=== PATIENT | male | born 1935 | race Caucasian/White ===

== ENCOUNTER 2018-09-09 16:38 | Emergency (ER) | payer MEDICARE, BC ==
--- NOTE | 2018-09-09 17:59 | ED.PDOC ---
History of Present Illness - General Chief Complaint: Neuro Symptoms/Deficits Stated Complaint: AMS Time Seen by Provider: 09/09/18 17:57 Source: RN notes reviewed, EMS Exam Limitations: clinical condition - Parkinsons dementia - History of Present Illness Initial Comments: Cruzito Carranza 83 y/o male brought by OR with Hx of Parkisons Dementia after he was noted to be combative,forgetting he already ate and sometimes hitting staff at OR,.On his arrival he was noted to be calm,disoriented due to dementia ,no agitation. Timing/Duration: unknown Severity: moderate Episode Description: see hpi Improving Factors: nothing Worsening Factors: nothing Associated Symptoms: other - see hpi Allergies/Adverse Reactions: Allergies NO KNOWN ALLERGY Allergy (Verified 09/09/18 18:41) Review of Systems - Review of Systems Neurological: States: see HPI, other - Parkinsons dementia Unable to Obtain Due To: condition, dementia All other Systems: No Change from Baseline Family Medical History - Family History Father Family History: Unknown Living Status: Unknown Physical Exam - Physical Exam General Appearance: Alert, Comfortable Eye Exam: bilateral normal ENT Exam: normal ENT inspection, hearing grossly normal, pharynx normal Neck: supple, normal inspection, trachea midline Respiratory: chest non-tender, lungs clear, normal breath sounds, no respiratory distress Cardiovascular/Chest: normal peripheral pulses, regular rate, rhythm, no murmur Peripheral Pulses: radial,right: 2+, radial,left: 2+ Gastrointestinal/Abdominal: non tender, soft Back Exam: no CVA tenderness, no vertebral tenderness Extremities Exam: other - stiffness of both lower extremities Mental Status: alert, disoriented x 3, 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 Exam: normal hearing, normal speech, PERRL Motor/Sensory: no sensory deficit, other - muscle stiffness Skin Exam: normal color, warm/dry Progress - Progress Progress: 09/09/18 20:13 Vital Signs - 8 hr 09/09/18 09/09/18 09/09/18 17:00 17:39 18:45 Temperature 97.9 F Pulse Rate [ 49 L Left Radial] Pulse Rate [ 71 50 L Pulse OX] Respiratory 16 18 18 Rate Blood Pressure 163/71 201/92 [L Arm] Blood Pressure 167/76 [Left Arm] O2 Sat by Pulse 97 96 94 L Oximetry 09/09/18 19:00 Temperature Pulse Rate [ 48 L Left Radial] Pulse Rate [ Pulse OX] Respiratory Rate Blood Pressure 165/75 [L Arm] Blood Pressure [Left Arm] O2 Sat by Pulse 97 Oximetry - Results/Orders Results/Orders: Laboratory Results - last 24 hr 09/09/18 09/09/18 09/09/18 18:16 18:16 19:20 WBC 11.1 H RBC 4.05 L Hgb 12.7 L Hct 37.5 L MCV 92.7 MCH 31.5 H MCHC 34.0 RDW 15.4 H Plt Count 543 H MPV 9.0 Absolute Neuts (auto) 9.00 H Absolute Lymphs (auto) 1.30 Absolute Monos (auto) 0.60 Absolute Eos (auto) 0.10 Absolute Basos (auto) 0.10 Neutrophils % 81.5 H Lymphocytes % 11.5 L Monocytes % 5.1 Eosinophils % 1.2 Basophils % 0.7 PT 11.0 H INR 1.10 PTT (SP) 31.1 Sodium 139 Potassium 4.1 Chloride 102 Carbon Dioxide 27 Anion Gap 14.1 BUN 22 H Creatinine 1.19 BUN/Creatinine Ratio 18.5 Random Glucose 110 H Serum Osmolality 281.5 Lactic Acid 0.7 Calcium 8.9 Magnesium 2.2 Total Bilirubin 0.6 Direct Bilirubin < 0.1 Indirect Bilirubin 0.5 AST 17 ALT 14 Alkaline Phosphatase 73 Creatine Kinase 66 CK-MB (CK-2) 3.5 CK-MB (CK-2) % Not Reportable Troponin I < 0.02 B-Natriuretic Peptide 249.0 H* Serum Total Protein 7.0 Albumin 4.4 TSH 1.57 Urine Color Yellow Urine Appearance Clear Urine pH 7.0 Ur Specific Kiana 1.020 Urine Protein Negative Urine Glucose (UA) Negative Urine Ketones Negative Urine Blood Negative Urine Nitrite Negative Urine Bilirubin Negative Urine Urobilinogen 0.2 Ur Leukocyte Esterase Negative Urine RBC 0 Urine WBC 0 Ur Epithelial Cells 0 Urine Bacteria 0 - EKG/XRAY/CT XRAY: chest - no acute abnormalities CT Ordered: Yes - no acute findings Departure - Departure Clinical Impression: Dementia due to Parkinson's disease with behavioral disturbance Time of Disposition: 20:14 Disposition: Discharge to [facility] Living Condition: Fair Departure Forms: ED Discharge - Pt. Copy, Patient Portal Self Enrollment Referrals: KARISSA SALAMANCA MD [Primary Care Provider] - 1-2 Weeks Additional Instructions: Continue with all current medications;Call office in AM for medication of his agitation
[2018-09-09 18:49] VITALS: TEMP 97.9
--- NOTE | 2018-09-09 18:54 | RAD ---
EXAM: XR Chest, 1 View CLINICAL HISTORY: 83 years old and is Male; history of pleural effusion TECHNIQUE: Frontal view of the chest. COMPARISON: No relevant prior studies available. FINDINGS: Limitations: None. Lungs: Unremarkable. No consolidation. Pleural space: No pleural effusion noted. No pneumothorax. Heart: Prominent cardiac shadow. Mediastinum: Unremarkable. Bones/joints: Unremarkable. IMPRESSION: No acute findings. Electronically signed by: Elizabeth Johnston MD 09/09/2018 6:53 PM CDT
--- NOTE | 2018-09-09 18:55 | CT ---
EXAM: CT Head Without Intravenous Contrast CLINICAL HISTORY: 83 years old and is Male; AMS TECHNIQUE: Axial computed tomography images of the head/brain without intravenous contrast. Sagittal and coronal reformatted images were created and reviewed. This CT exam was performed using one or more of the following dose reduction techniques: automated exposure control, adjustment of the mA and/or kV according to patient size, and/or use of iterative reconstruction technique. COMPARISON: No relevant prior studies available. FINDINGS: Limitations: None. Brain: There is age related cortical atrophy and periventricular white matter hypodensity most consistent with chronic small ischemic change. No acute infarct, hemorrhage or mass. Ventricles: Unremarkable. No ventriculomegaly. Bones/joints: Unremarkable. No acute fracture. Soft tissues: Unremarkable. Sinuses: Unremarkable as visualized. No acute sinusitis. Mastoid air cells: Unremarkable as visualized. No mastoid effusion. IMPRESSION: No acute findings. Electronically signed by: Elizabeth Johnston MD 09/09/2018 6:54 PM CDT
[2018-09-09 20:48] VITALS: BP 164/78; O2SAT 98
== END 2018-09-09 20:50 ==
LOC: ER 16:38
DX: G20 Parkinson's disease (principal); F02.81 Dementia in other diseases classified elsewhere, unspecified severity, with behavioral disturbance

== ENCOUNTER 2018-10-02 04:44 | Emergency (ER) | payer MEDICARE, BC ==
--- NOTE | 2018-10-02 05:14 | ED.PDOC ---
History of Present Illness - General Chief Complaint: Trauma Stated Complaint: unwitnessed fall out of bed Time Seen by Provider: 10/02/18 04:59 Source: patient Exam Limitations: physical impairment Additional Information: PT HAS NO C/O'S - History of Present Illness Initial Comments: PT FOUND IN FLOOR. LIVES A NH, IS SEVERELY DEMENTED. HAD SWELLING TO HEAD, WAS TRANSPORTED TO ED FOR EVAL. Allergies/Adverse Reactions: Allergies NO KNOWN ALLERGY Allergy (Verified 09/09/18 18:41) Home Medications: Ambulatory Orders ALPRAZolam [Xanax] 0.25 mg PO BEDTIME 10/02/18 Escitalopram [Lexapro] 10 mg PO DAILY 10/02/18 Levetiracetam [Keppra] 500 mg PO BID 10/02/18 Memantine HCl [Namenda Xr] 28 mg PO DAILY 10/02/18 Quetiapine Fumarate [Seroquel] 25 mg PO BEDTIME 10/02/18 Rivastigmine Tartrate [Exelon] 6 mg PO BID 10/02/18 rOPINIRole HCL [Requip] 1 mg PO TID 10/02/18 Review of Systems - Review of Systems Constitutional: States: see HPI EENTM: States: see HPI Respiratory: States: see HPI Cardiology: States: see HPI Gastrointestinal/Abdominal: States: see HPI Genitourinary: States: see HPI Musculoskeletal: States: see HPI Skin: States: see HPI Neurological: States: see HPI Endocrine: States: see HPI Hematologic/Lymphatic: States: see HPI Past Medical History (General) - Patient Medical History Hx Stroke: No Hx Dementia: Yes - Alzheimer's Hx Congestive Heart Failure: No Hx Diabetes: No Hx MRSA: No - Vaccination History Hx Influenza Vaccination: - unknown Hx Pneumococcal Vaccination: - unknown - Social History Hx Tobacco Use: No Hx Alcohol Use: No Hx Substance Use: No Family Medical History - Family History Father Family History: Unknown Living Status: Unknown Physical Exam - Physical Exam General Appearance: Alert, No apparent distress Eye Exam: bilateral normal Ears, Nose, Throat: hearing grossly normal, other - SWELLING L POST OCCIPUT. MILD, NO ECCHYMOSIS, NO STEP OFF Neck: non-tender, full range of motion, supple Respiratory: lungs clear, normal breath sounds Cardiovascular/Chest: regular rate, rhythm, no murmur, other - NO EVIDENCE OF TRAUMA Gastrointestinal/Abdominal: non tender, soft, no organomegaly Back Exam: normal inspection, no CVA tenderness, no vertebral tenderness Extremity: normal range of motion, non-tender, normal inspection, other - NO BONY ABN/DEFORMITY, HIPS NTTP, LEGS GOOD ROM Neurologic: no motor/sensory deficits, alert, normal mood/affect, other - MOD- SEVERE DEMENTIA Progress - EKG/XRAY/CT CT: HEAD/C SPINE: FREDO Departure - Departure Clinical Impression: Contusion of scalp Qualifiers: Encounter type: initial encounter Qualified Code(s): S00.03XA - Contusion of scalp, initial encounter Dementia Qualifiers: Dementia type: unspecified type Dementia behavioral disturbance: without behavioral disturbance Qualified Code(s): F03.90 - Unspecified dementia without behavioral disturbance Time of Disposition: 06:41 Disposition: Discharge to SNF Condition: Fair Departure Forms: ED Discharge - Pt. Copy, Patient Portal Self Enrollment Instructions: Closed Head Injury Referrals: KARISSA SALAMANCA MD [Primary Care Provider] - 1-2 Weeks Home Medications: Ambulatory Orders ALPRAZolam [Xanax] 0.25 mg PO BEDTIME 10/02/18 Escitalopram [Lexapro] 10 mg PO DAILY 10/02/18 Levetiracetam [Keppra] 500 mg PO BID 10/02/18 Memantine HCl [Namenda Xr] 28 mg PO DAILY 10/02/18 Quetiapine Fumarate [Seroquel] 25 mg PO BEDTIME 10/02/18 Rivastigmine Tartrate [Exelon] 6 mg PO BID 10/02/18 rOPINIRole HCL [Requip] 1 mg PO TID 10/02/18
--- NOTE | 2018-10-02 06:16 | CT ---
EXAM: CT Head Without Intravenous Contrast. CT Cervical Spine Without Intravenous Contrast. CLINICAL HISTORY: The patient is 83 years old and is Male; FALL TECHNIQUE: Axial computed tomography images of the head/brain and cervical spine without intravenous contrast. Sagittal and coronal reformatted images were created and reviewed. This CT exam was performed using one or more of the following dose reduction techniques: automated exposure control, adjustment of the mA and/or kV according to patient size, and/or use of iterative reconstruction technique. COMPARISON: September 09, 2018 FINDINGS: Brain: Periventricular and deep white matter hypodensities, most commonly due to nonspecific white matter chronic microvascular ischemia. Mild cerebral atrophy. No hemorrhage. Ventricles: Unremarkable. No ventriculomegaly. Skull: No acute fracture. Sinuses: Unremarkable as visualized. No acute sinusitis. Mastoid air cells: Unremarkable as visualized. No mastoid effusion. Vertebrae: Multilevel spine degenerative changes with disc height loss, osteophyte formation and facet arthrosis, pronounced from C3 through C7. No acute fracture. Normal alignment. Discs/spinal canal/neural foramina: No acute findings. No spinal canal stenosis. Soft tissues: Unremarkable. Vasculature: Vascular calcifications. IMPRESSION: 1. No acute spine abnormality. No fracture or subluxation. Moderate spine degenerative changes. 2. No acute intracranial findings. Mild cerebral atrophy and nonspecific chronic microvascular ischemic changes. Electronically signed by: Matthew Hurd MD 10/02/2018 6:14 AM CDT
[2018-10-02 07:51] VITALS: BP 158/82; TEMP 97.2; O2SAT 97
== END 2018-10-02 07:35 ==
LOC: ER 04:44
DX: S00.03XA Contusion of scalp, initial encounter (principal); M47.812 Spondylosis without myelopathy or radiculopathy, cervical region; G30.9 Alzheimer's disease, unspecified; F02.80 Dementia in other diseases classified elsewhere, unspecified severity, without behavioral disturbance, psychotic disturbance, mood disturbance, and anxiety; W06.XXXA Fall from bed, initial encounter; Y92.129 Unspecified place in nursing home as the place of occurrence of the external cause; Z79.899 Other long term (current) drug therapy

== ENCOUNTER → 2018-12-04 | Outpatient (CLI) | payer MEDICARE, BC | LOC: YCHH 09:52 | PROVIDERS: ATTEND Family Medicine | DX: E78.2 Mixed hyperlipidemia (principal); D64.9 Anemia, unspecified; N42.89 Other specified disorders of prostate; E03.8 Other specified hypothyroidism; R97.20 Elevated prostate specific antigen [PSA]; Z13.220 Encounter for screening for lipoid disorders ==

== ENCOUNTER → 2019-01-24 | Outpatient (CLI) | payer MEDICARE, BC | LOC: YCHH 14:20 | PROVIDERS: ATTEND Family Medicine | DX: R78.89 Finding of other specified substances, not normally found in blood (principal) ==

== ENCOUNTER → 2019-01-28 | Outpatient (CLI) | payer MEDICARE, BC | LOC: YCHH 10:07 | PROVIDERS: ATTEND Family Medicine | DX: R30.0 Dysuria (principal) ==

== ENCOUNTER 2019-02-28 17:30 | Inpatient (IN) | payer MEDICARE, BC ==
[2019-02-28] MEDS ORDERED: SODIUM CHLORIDE 0.9% 1000ML 1,000 ML IVS ONE ×2 (17:48→20:08)
[2019-02-28] MEDS ORDERED: IBUPROFEN 200 MG TAB PO ONE (17:49)
[2019-02-28] MEDS ORDERED: levoFLOXacin 500MG IV 500 MG in PREMIX BAG 1 BAG IVPB ONE (18:41)
[2019-02-28] MEDS ORDERED: cefTRIAXone SODIUM 1 GM in SODIUM CHL 0.9% 50ML MIN-BAG+ 50 ML IVPB ONE (18:41)
[2019-02-28] MEDS ORDERED: SODIUM CHL 0.9% 50ML MIN-BAG+ 50 ML IVPB ONE (18:48)
[2019-02-28] MEDS ORDERED: cefTRIAXone SODIUM 1 GM VIAL ONE (18:48)
--- NOTE | 2019-02-28 19:02 | RAD ---
EXAM DESCRIPTION: XR Abdomen Series CLINICAL HISTORY: fever uncertain source TECHNIQUE: Two views of the abdomen and frontal view of the chest are submitted. COMPARISON: Correlation is made with chest x-ray dated 09/09/2018 FINDINGS: Heart: The cardiac silhouette is within normal limits. Lungs: No focal consolidation. Mediastinum: Thoracic aortic atherosclerosis. Pleura: Unremarkable Bowel: Moderate stool throughout the large bowel to the level of the rectum. No dilation. Calcifications: None Bones: Multilevel spondylosis. Mild to moderate degenerative changes at the glenohumeral joints bilaterally. No acute fracture. IMPRESSION: 1. No acute cardiopulmonary disease. 2. Nonobstructive bowel gas pattern. Electronically signed by: Marija Horn MD 02/28/2019 7:01 PM [employer]
[2019-02-28] MEDS ORDERED: levoFLOXacin 500MG IV 100 ML IVPB ONE (19:34)
--- NOTE | 2019-02-28 20:32 | CT ---
EXAM DESCRIPTION: Abdoment/Pelvis w/o Contrast CLINICAL HISTORY: 83 years Male fever uncertain origin, hx uti's COMPARISON: None TECHNIQUE: Images were obtained in axial, sagittal, and coronal planes. No intravenous or oral contrast was administered. This exam was performed according to our departmental dose-optimization program which includes use of Automated Exposure Control, adjustment of the mA and/or kV according to patient size and/or use of iterative reconstruction technique. FINDINGS: 9 mm low-attenuation focus superior right lobe of liver likely cyst. Spleen is enlarged measuring 14.4 cm in greatest dimension. Unremarkable pancreas, gallbladder and adrenal glands bilaterally. Mild right hydronephrosis and hydroureter. No obstructing renal or ureteral calcifications bilaterally. No hydronephrosis on left. Marked bladder distention. Clarkson appearing suggesting neurogenic bladder. Enlarged prostate gland. Calcification abdominal aorta with no dilatation seen. No adenopathy or abnormal fluid collections noted. Appendix not well identified however no secondary signs for appendicitis. Marked constipation. Marked stool rectosigmoid region indicating fecal impaction. Dependent atelectatic change lower lungs bilaterally. No acute osseous abnormality. Marked multilevel osteoarthritic change. Diffuse bulging L1-2 intervertebral disc with associated marked spondylitic change and severe spinal stenosis. Diffuse bulging L2-3 intervertebral discs with associated spondylitic change and moderate spinal stenosis. Broad-based protrusion L3-4 intervertebral disc with associated marked spondylitic change and marked spinal stenosis. Broad-based protrusion L4-5 intervertebral discs with associated marked spondylitic change and marked spinal stenosis. IMPRESSION: Mild right hydronephrosis and hydroureter with no obstructing calcifications seen. Recently passed calculus versus inflammatory process could be considered. Suspected neurogenic bladder. Marked constipation with suspected fecal impaction. Enlarged spleen. Multilevel disc bulging and protrusions with marked spondylitic change and severe spinal stenosis. Electronically signed by: Cyn Kapoor MD 02/28/2019 8:31 PM LIFE ADVISOR
[2019-02-28] MEDS ORDERED: ALPRAZolam 0.25 MG TAB PO ONE (20:44)
[2019-02-28] MEDS ORDERED: QUEtiapine FUMARATE 25 MG TAB PO ONE (20:45)
[2019-02-28] MEDS ORDERED: levETIRAcetam 250 MG TAB PO ONE (20:46)
--- NOTE | 2019-02-28 20:53 | ED.PDOC ---
History of Present Illness - General Chief Complaint: Fever Stated Complaint: Fever, weakness Time Seen by Provider: 02/28/19 17:43 Source: patient Exam Limitations: no limitations - History of Present Illness Initial Comments: the patient is a 83-year-old male presenting to the emergency room from the [facility] secondary to fever of 104 and a decreased level of r esponsiveness. The patient does have advanced Parkinson's and does not communicate well or move well to start with. He was given a dose of Tylenol there and by the time he arrived here his temperature was down to 101. He received a dose of Motrin here which has helped bring it down further and he is mentating much better and moving much better. The patient really is unable to communicate any complaints. His reports that he has had multiple urinary tract infections in the past. She has refused to allow him to have a urinary catheter. She reports that he reacts quite violently when one is put in. The patient does look somewhat dehydrated. The patient takes numerous medications for his Parkinson's. Timing/Duration: unsure Severity: moderate Improving Factors: nothing Worsening Factors: nothing Associated Symptoms: fever/chills, loss of appetite, malaise Allergies/Adverse Reactions: Allergies NO KNOWN ALLERGY Allergy (Verified 02/28/19 17:48) Home Medications: Ambulatory Orders ALPRAZolam [Xanax] 0.25 mg PO BEDTIME 10/02/18 Escitalopram [Lexapro] 10 mg PO BEDTIME 10/02/18 Levetiracetam [Keppra] 500 mg PO BID 10/02/18 Memantine HCl [Namenda Xr] 28 mg PO BEDTIME 10/02/18 Quetiapine Fumarate [Seroquel] 25 mg PO BEDTIME 10/02/18 Rivastigmine Tartrate [Exelon] 6 mg PO BID 10/02/18 Ropinirole Hydrochloride 3 mg PO TID 02/28/19 Spironolactone [Aldactone] 25 mg PO DAILY 02/28/19 Review of Systems - Review of Systems Constitutional: States: chills, fever, weakness - generalized EENTM: States: no symptoms reported Respiratory: States: no symptoms reported Cardiology: States: no symptoms reported Gastrointestinal/Abdominal: States: other - decreased oral intake today Genitourinary: States: see HPI Musculoskeletal: States: no symptoms reported Skin: States: no symptoms reported Neurological: States: other - decreased level of interaction and responsiveness when compared to his baseline Endocrine: States: no symptoms reported All other Systems: No Change from Baseline Past Medical History (General) - Patient Medical History Hx Seizures: No Hx Stroke: No Hx Dementia: Yes - Alzheimer's Hx Asthma: No Hx of COPD: No Hx Cardiac Disorders: No Hx Congestive Heart Failure: No Hx Pacemaker: No Hx Hypertension: No Hx Thyroid Disease: No Hx Diabetes: No Hx Gastroesophageal Reflux: No Hx Renal Disease: No Hx Cancer: No Hx of HIV: No Hx Hepatitis C: No Hx MRSA: No - Vaccination History Hx Influenza Vaccination: - unknown Hx Pneumococcal Vaccination: - unknown - Social History Hx Tobacco Use: No Hx Alcohol Use: No Hx Substance Use: No Hx Depression: Yes - Activities of Daily Living Custodial/Assisted Living (if applicable):: [facility] Family Medical History - Family History Father Family History: Unknown Living Status: Unknown Physical Exam - Physical Exam General Appearance: Frail, Lethargic, Ill Appearing Eye Exam: bilateral normal Ears, Nose, Throat: hearing grossly normal - he does respond by orienting to voice., other - mucous membranes are dry. Neck: non-tender, other - slight chronic decreased range of motion of the neck. Consistent with cogwheel rigidity Respiratory: lungs clear, normal breath sounds, no respiratory distress, no accessory muscle use Cardiovascular/Chest: normal peripheral pulses, regular rate, rhythm, no edema Peripheral Pulses: radial,right: 2+, radial,left: 2+ Gastrointestinal/Abdominal: soft, other - suprapubic discomfort palpation. Rectal Exam: deferred Back Exam: no CVA tenderness, no vertebral tenderness Extremity: non-tender, no pedal edema, no calf tenderness, normal capillary refill, other - significant rigidity of the extremities when compared normal Neurologic: alert, other - numerous chronic changes related to advanced Parkinson's Skin Exam: other - initially flushed with fever Comments: Vital Signs - 8 hr 02/28/19 02/28/19 02/28/19 17:30 18:00 19:00 Temperature 100.3 F H Pulse Rate [ 91 H 78 72 Left Radial] Respiratory 18 18 16 Rate Blood Pressure 119/61 119/61 113/55 [Left Arm] O2 Sat by Pulse 94 L 94 L 94 L Oximetry 02/28/19 20:00 Temperature Pulse Rate [ 75 Left Radial] Respiratory 16 Rate Blood Pressure 108/59 [Left Arm] O2 Sat by Pulse 94 L Oximetry Progress - Progress Progress: 02/28/19 20:56 the patient is an 83-year-old male presenting to the emergency room with what is most likely urosepsis. This is likely being contributed to by a neurogenic bladder. The neurogenic bladder may be coming from medications, advanced Parkinson's or advanced degenerative changes of the lumbar spine. He apparently does urinate on his own normally. has refused Bell catheter placement at this time so a condom catheter has been placed. He has not yet been able to void but we will leave this in place in order to collect a urine f or urinalysis and culture. Given his level of acuity he is being started on Levaquin and Rocephin. A blood culture has been performed. With the acute renal failure and dehydration he is receiving 2 L of IV fluids. If the patient is not voiding better in the morning then reconsideration of the Bell catheter should be taken or the patient may be started on a trial of bethanechol once it is available. We do not have it in our pharmacy here [place], and I'm uncertain how well it will mix with his Parkinson's medications. No evidence of hypotension. Marked leukocytosis and fever. admit for continued care and monitoring. - Results/Orders Results/Orders: chest x-ray shows no acute pathology. CT abdomen and pelvis shows mild hydronephrosis on the right and bladder changes consistent with neurogenic bladder. Fairly distended bladder. Laboratory Tests 02/28/19 02/28/19 02/28/19 18:09 18:09 18:09 WBC 23.6 H* RBC 4.44 L Hgb 12.1 L Hct 37.5 L MCV 84.5 MCH 27.4 MCHC 32.4 L RDW 16.3 H Plt Count 691 H MPV 9.6 Absolute Neuts (auto) 20.80 H Absolute Lymphs (auto) 0.70 L Absolute Monos (auto) 2.10 H Absolute Eos (auto) 0.00 Absolute Basos (auto) 0.10 Neutrophils % 87.9 H Neutrophils % (Manual) 88.0 H Lymphocytes % 2.9 L Lymphocytes % (Manual) 3.0 Monocytes % 8.7 Monocytes % (Manual) 9.0 Eosinophils % 0.2 L Basophils % 0.3 Platelet Estimate Increased Sodium 145 Potassium 3.9 Chloride 110 Carbon Dioxide 24 Anion Gap 14.9 BUN 35 H Creatinine 1.90 H BUN/Creatinine Ratio 18.4 Random Glucose 146 H Serum Osmolality 299.3 H Lactic Acid 1.0 Calcium 8.8 Total Bilirubin 0.8 AST 30 ALT 24 Alkaline Phosphatase 81 Serum Total Protein 6.8 Albumin 3.4 Globulin 3.4 Albumin/Globulin Ratio 1.0 L Departure - Departure Clinical Impression: Neurogenic bladder, Dehydration Urinary tract infection Qualifiers: Urinary tract infection type: acute pyelonephritis Qualified Code(s): N10 - Acute pyelonephritis Sepsis Qualifiers: Sepsis type: sepsis due to unspecified organism Sepsis acute organ dysfunction status: with acute organ dysfunction Severe sepsis acute organ dysfunction type: acute renal failure Acute renal failure type: unspecified Severe sepsis shock status: without septic shock Qualified Code(s): A41.9 - Sepsis, unspecified organism; R65.20 - Severe sepsis without septic shock; N17.9 - Acute kidney failure, unspecified Acute renal failure Qualifiers: Acute renal failure type: unspecified Qualified Code(s): N17.9 - Acute kidney failure, unspecified Hydronephrosis Qualifiers: Hydronephrosis type: unspecified Qualified Code(s): N13.30 - Unspecified hydronephrosis Disposition: Admit Patient Departure Forms: ED Discharge - Pt. Copy, Patient Portal Self Enrollment Referrals: KARISSA SALAMANCA MD [Primary Care Provider] - 1-2 Weeks Home Medications: Ambulatory Orders ALPRAZolam [Xanax] 0.25 mg PO BEDTIME 10/02/18 Escitalopram [Lexapro] 10 mg PO BEDTIME 10/02/18 Levetiracetam [Keppra] 500 mg PO BID 10/02/18 Memantine HCl [Namenda Xr] 28 mg PO BEDTIME 10/02/18 Quetiapine Fumarate [Seroquel] 25 mg PO BEDTIME 10/02/18 Rivastigmine Tartrate [Exelon] 6 mg PO BID 10/02/18 Ropinirole Hydrochloride 3 mg PO TID 02/28/19 Spironolactone [Aldactone] 25 mg PO DAILY 02/28/19 Decision To Admit - Decistion To Admit Decision to Admit Reason: Medical Nature Decision to Admit Date: 02/28/19 Decision to Admit Time: 21:02
--- NOTE | 2019-02-28 21:37 | HP ---
SUPERVISING PHYSICIAN: Tacos Sadler MD CHIEF COMPLAINT: Fever and weakness. HISTORY OF PRESENT ILLNESS: This is an 83 year-old male patient who lives at [facility] in their memory unit. He presented to the Emergency Room secondary to having a fever up to 104 and he also had a decreased level of responsiveness. The patient does have advanced Parkinson's and Lewy Body dementia so he does not communicate well in his usual state. They had difficulty arousing him. He was given a dose of Tylenol at [facility] and his temperature got down to 101. When he got to the Emergency Room, the patient was unable to communicate at all and most of the history came from his . Until about two weeks ago, he had been able to feed himself and he did not ambulate other than with his physical therapist. His initial set of vital signs showed a temperature of 101, heart rate of 91, blood pressure 119/61, although it dropped to 68/38. His respiratory rate was 18, oxygen saturation 94%. Initial lab showed a WBC of 23,600, hemoglobin 12.1, hematocrit 37.5. He had a left shift on his differential and his electrolytes were within normal limits but his BUN was 35, creatinine 1.9, baseline creatinine is 1.1. They were unable to get a urine in the Emergency Room and his did not want him to be catheterized. He had a condom cath in place. He was given fluids and it was suspected he had a urinary tract infection. He also had an abdomen/pelvic CT which showed mild right hydronephrosis and hydroureter with no obstructing configurations seen. He recently passed calculus versus inflammatory process could be considered. Suspect neurogenic bladder, marked constipation with suspected fecal impaction, enlarged spleen, multilevel disk bulge seen with protrusions and marked spondylitic change and severe spinal stenosis. Abdominal x-ray showed no acute cardiopulmonary disease and nonobstructive bowel gas pattern. His influenza A and B per PCR were both negative. Blood cultures were obtained prior to starting the Levaquin. I was called for hospital admission. PAST MEDICAL HISTORY: 1. Congestive heart failure with unknown ejection fraction but he does have mild diastolic dysfunction. 2. Lewy Body dementia. 3. Parkinson's disease. PAST SURGICAL HISTORY: None. CURRENT MEDICATIONS: Per the EMR and awaiting verification. ALLERGIES: No known drug allergies. FAMILY HISTORY: Noncontributory. SOCIAL HISTORY: He is retired. He is . He has two children. There is no history of tobacco, ETOH or illicit drug use. REVIEW OF SYSTEMS: Unable to obtain due to patient's mental status. PHYSICAL EXAMINATION: VITAL SIGNS: Temperature 98.4, heart rate 64, blood pressure 68/38, after fluids it came up to 131/68, respiratory rate 18, oxygen saturation 94% on room air. GENERAL: This is an 83 year-old frail male that is somewhat cachectic. He is obtunded. He looks to be moderately ill. HEENT: Normocephalic and atraumatic. Pupils are equal and reactive. Oropharynx is clear. His oral mucous membranes are very dry as well as his lips. NECK: Supple without mass. CHEST: Essentially clear to auscultation bilaterally. There is equal rise and fall of the chest with inspiration and expiration. CARDIOVASCULAR: Regular rate and rhythm. ABDOMEN: Soft, nondistended, non-tender. Bowel sounds are positive. EXTREMITIES: No cyanosis, clubbing, or edema. NEUROLOGIC: He is obtunded, although he does squeeze hands to commands, he does not communicate in any other way. SKIN: Very warm and dry. Labs and films are as per the history of present illness. ASSESSMENT: 1. Sepsis secondary to urinary tract infection with admitting WBC of 23,600, temperature of 100.3, heart rate 91 and hypotensive blood pressure at 60/38. 2. Acute on chronic renal failure, baseline creatinine is 1.1. His admitting creatinine was 1.9. 3. Severe dehydration secondary to #1 and contributing to #2. 4. Advanced dementia with Lewy Body. 5. Congestive heart failure with unknown ejection fraction and no present echocardiogram to review with a mild diastolic dysfunction. 6. Advanced Parkinson's disease. 7. Constipation. PLAN: We will admit the patient to the hospital. I have instructed staff to get a Bell catheter and get the urinalysis run as soon as possible. Suspect that it is from a urinary tract infection. Will get that confirmed and cultures sent off. Will monitor his cultures as they become available.I will also get staff to verify his code status. He may need to go to a assisted at discharge due to his present status but will reevaluate after he is well hydrated and infection is better. Will have lab in the morning, place the Bell catheter, with continue with the Levaquin. He will have Lovenox for DVT prophylaxis and we will continue to monitor him closely and follow as needed. [facility][id number] [facility]
[2019-02-28] MEDS ORDERED: SODIUM CHLORIDE 0.9% 500ML 500 ML IVS ONE (21:58)
[2019-02-28] MEDS ORDERED: SODIUM CHLORIDE 0.9% 500ML 500 ML ONE (21:59)
[2019-02-28] MEDS ORDERED: SODIUM CHLORIDE 0.9% (FLUSH) 10 ML SYG IV PRN (22:42)
[2019-02-28] MEDS ORDERED: ONDANSETRON INJ 4 MG/2 ML VIAL IV PRN (22:42)
[2019-02-28] MEDS: IV SET AND CAP CHANGE INJ INJ SCH (23:00)
[2019-02-28] MEDS ORDERED: ROPINIROLE HYDROCHLORIDE PO SCH (23:00)
[2019-02-28] MEDS: SODIUM CHLORIDE 0.45% 1000ML 1,000 ML IVS PRN (23:37)
[2019-03-01] MEDS: RIVASTIGMINE TARTRATE 6 MG PO SCH ×3 (00:57→20:51)
[2019-03-01] MEDS: SODIUM CHLORIDE 0.45% 1000ML 1,000 ML IVS PRN ×2 (06:41→15:55)
[2019-03-01] MEDS ORDERED: levoFLOXacin 500MG IV 100 ML IVPB ONE (08:07)
[2019-03-01] MEDS: QUEtiapine FUMARATE 25 MG TAB PO SCH ×3 (08:16→23:34)
[2019-03-01] MEDS: levETIRAcetam 250 MG TAB PO SCH ×2 (08:16→20:50)
[2019-03-01] MEDS: SPIRONOLACTONE 25 MG TAB PO SCH (08:16)
[2019-03-01] MEDS: levoFLOXacin 500MG IV 500 MG in PREMIX BAG 1 BAG IVPB SCH (08:17)
[2019-03-01] MEDS ORDERED: SODIUM CHLORIDE 0.9% (FLUSH) 10 ML SYG IV SCH (09:00)
[2019-03-01] MEDS: ACETAMINOPHEN 325 MG TAB PO PRN (12:14)
[2019-03-01] MEDS ORDERED: ACETAMINOPHEN IV 1000MG 100 ML ONE (14:52)
[2019-03-01] MEDS ORDERED: ACETAMINOPHEN IV 1000MG 1,000 MG in PREMIX BOTTLE 1 BOTTLE IVPB ONE (14:59)
[2019-03-01] MEDS: ESCITALOPRAM 10 MG TAB PO SCH (20:50)
[2019-03-01] MEDS: ENOXAPARIN SODIUM 30 MG/0.3 ML SYG SUBCU SCH (20:51)
[2019-03-01] MEDS: NON-FORMULARY MEDICATION 1 EA MIS (Memantine Hcl [Namenda Xr] 28 MG) PO SCH (20:51)
[2019-03-01] MEDS: ALPRAZolam 0.25 MG TAB PO SCH (20:52)
[2019-03-02] MEDS: SODIUM CHLORIDE 0.45% 1000ML 1,000 ML IVS PRN ×3 (00:07→17:43)
[2019-03-02] MEDS: ACETAMINOPHEN 325 MG TAB PO PRN ×2 (06:26→11:11)
[2019-03-02] MEDS ORDERED: levoFLOXacin 500MG IV 100 ML IVPB ONE (08:20)
[2019-03-02] MEDS: levETIRAcetam 250 MG TAB PO SCH ×2 (08:22→20:33)
[2019-03-02] MEDS: IBUPROFEN 400 MG TAB PO PRN (08:22)
[2019-03-02] MEDS: SPIRONOLACTONE 25 MG TAB PO SCH (08:22)
[2019-03-02] MEDS: QUEtiapine FUMARATE 25 MG TAB PO SCH ×3 (08:22→20:32)
[2019-03-02] MEDS: levoFLOXacin 500MG IV 500 MG in PREMIX BAG 1 BAG IVPB SCH (08:23)
[2019-03-02] MEDS: RIVASTIGMINE TARTRATE 6 MG PO SCH ×2 (08:23→20:30)
[2019-03-02] MEDS ORDERED: MEROPENEM 1 GM VIAL IVPB ONE ×3 (09:36→19:22)
[2019-03-02] MEDS ORDERED: SODIUM CHL 0.9% 50ML MIN-BAG+ 50 ML IVPB ONE ×3 (09:37→19:21)
[2019-03-02] MEDS: MEROPENEM 1 GM in SODIUM CHL 0.9% 50ML MIN-BAG+ 50 ML IVPB SCH ×2 (09:41→17:21)
--- NOTE | 2019-03-02 10:37 | RAD ---
EXAM: XR Abdomen, 1 View CLINICAL HISTORY: constipation TECHNIQUE: Frontal supine view of the abdomen/pelvis. COMPARISON: No relevant prior studies available. FINDINGS: Gastrointestinal tract: Moderate to large amount of diffuse colonic stool present. No distention. Bones/joints: Degenerative changes present in the spine. Soft tissues: No radiopaque foreign body noted. IMPRESSION: Moderate to large amount of diffuse colonic stool present. No distention. Electronically signed by: Elizabeth Johnston MD 03/02/2019 10:36 AM [facility]
--- NOTE | 2019-03-02 10:39 | RAD ---
EXAM: XR Chest, 1 View CLINICAL HISTORY: sepsis TECHNIQUE: Frontal view of the chest. COMPARISON: 09/09/2018. FINDINGS: Lungs: New small focus of patchy airspace consolidation now present in the right base. Pleural space: Unremarkable. No pneumothorax. Heart: Unremarkable. No cardiomegaly. Mediastinum: Unremarkable. Bones/joints: Unremarkable. IMPRESSION: New small focus of airspace consolidation concerning for developing pneumonia in the right base. Electronically signed by: Elizabeth Johnston MD 03/02/2019 10:37 AM [facility]
[2019-03-02] MEDS ORDERED: LEVALBUTEROL NEBS 1.25 MG/3 ML VIAL NEB ONE (12:47)
[2019-03-02] MEDS ORDERED: LEVALBUTEROL NEBS 1.25 MG/3 ML VIAL NEB PRN (12:48)
--- NOTE | 2019-03-02 14:13 | PN ---
DATE: 03/01/2019 SUPERVISING PHYSICIAN: Tacos Sadler MD SUBJECTIVE: The patient is lying in bed. He is in no acute distress. He is mostly nonverbal and is mostly obtunded at this time. is at the bedside. She says he does occasionally wake up and call her name but otherwise he does not have much verbal communication. No reports of nausea or vomiting overnight. OBJECTIVE: VITAL SIGNS: Temperature 98.7, heart rate 82, blood cxibauvp123/62, respiratory rate 16, oxygen saturation 93% on room air. RESPIRATORY: Somewhat diminished at the bases but otherwise clear to auscultation bilaterally. CARDIAC: Regular rate and rhythm. ABDOMEN: Soft, non-tender, bowel sounds are positive. NEURO: He is obtunded but he does open his eyes to commands. He does squeeze your hand occasionally to commands. LABORATORY: WBC 18.3, hemoglobin 11, hematocrit 34.6. He has a left shift on his differential. Electrolytes are basically within normal limits except his chloride is slightly high at 113, BUN 36, creatinine has improved slightly at 1.73. Calcium is slightly low at 7.8. Preliminary blood cultures showed no growth. All other labs and films have been reviewed via the EMR. ASSESSMENT: 1. Sepsis secondary to urinary tract infection with admitting WBC of 23,600, temperature of 100.3, heart rate 91 and hypotensive blood pressure at 60/38. 2. Acute on chronic renal failure, baseline creatinine is 1.1. His admitting creatinine was 1.9. 3. Severe dehydration secondary to #1 and contributing to #2. 4. Advanced dementia with Lewy Body. 5. Congestive heart failure with unknown ejection fraction and no present echocardiogram to review with a mild diastolic dysfunction. 6. Advanced Parkinson's disease. 7. Constipation. PLAN: We will continue previous supportive care. I will monitor cultures and change antibiotics as needed once they become available. Code status has been verified to DNR. Also, consulted Booster Operator for discharge assistance. Not sure he will be able to go back to the memory care, he may have to go to a long-term but will wait for that for Tiny, REBECCA and his family. The would like him have an order for 2 to 3 times a day teeth brushing when he is discharged as well as she would like to have his Bell catheter discontinued. He presently uses diapers and she would like to continue with that. She also would like for the patient to have mouth moisturizer on his lips frequently. We will continue to monitor him closely and follow as needed. #[id number] [facility]
--- NOTE | 2019-03-02 14:16 | PN ---
SUPERVISING PHYSICIAN: Tacos Sadler MD DATE: 03/02/19 SUBJECTIVE: The patient is lying in bed. It was reported by nursing that he spiked a temperature of 103.3 last night. Blood cultures were drawn. He is somewhat more awake today and opens his eyes to commands, but he is nonverbal. He does squeeze hand to verbal command. OBJECTIVE: VITAL SIGNS: Temperature 98.6. T-max 24 hours 103.3. Heart rate 57. Blood pressure 118/66. Respiratory rate 16. O2 saturation 93% on room air. RESPIRATORY: Diminished throughout, but otherwise clear to auscultation. CARDIAC: Regular rate and rhythm. GASTROINTESTINAL: Abdomen is soft, nondistended. Bowel sounds are positive. NEUROLOGIC: He is awake. He opens his eyes. He is nonverbal. LABORATORY: WBCs improved to 14,200 with a hemoglobin of 9.7, hematocrit 30.5. He has a left shift on differential. Electrolytes are basically within normal limits. Chloride slightly high at 112. Magnesium is low at 1.6. BUN 24, creatinine improved to 1.29. Preliminary blood culture show no growth after 24 hours. His second set of blood cultures are pending. Chest x-ray shows a new small focus of airspace consolidation concerning for developing pneumonia at the right base. Abdominal x-ray shows moderate to large amount of diffuse colonic stool present. No distention. All other labs and films have been reviewed via the EMR. ASSESSMENT: 1. Sepsis secondary to urinary tract infection as well as developing right lower lobe pneumonia with admitting WBC of 23,600, temperature of 100.3, heart rate 91 and hypotensive blood pressure at 60/38. 2. Acute on chronic renal failure, baseline creatinine is 1.1. His admitting creatinine was 1.9. 3. Severe dehydration secondary to #1 and contributing to #2. 4. Advanced dementia with Lewy Body. 5. Congestive heart failure with unknown ejection fraction and no present echocardiogram to review with a mild diastolic dysfunction. 6. Advanced Parkinson's disease. 7. Constipation. PLAN: We will continue present supportive care. I have added Merrem to his antibiotics. I will repeat his lab and chest x-ray in the morning. I have added the pneumonia guidelines. We will monitor his cultures as they become available. Hopefully, he clinically improves and we can discharge him in the next few days. We will continue to monitor the patient closely and follow as needed. #[id number] [facility]
[2019-03-02] MEDS: LEVALBUTEROL NEBS 1.25 MG/3 ML VIAL NEB SCH ×2 (16:25→20:13)
[2019-03-02] MEDS ORDERED: SODIUM CHLORIDE 0.9% 500ML 500 ML IVS ONE (18:26)
[2019-03-02] MEDS ORDERED: MAGNESIUM HYDROXIDE 30 ML UD PO ONE (18:26)
[2019-03-02] MEDS: NON-FORMULARY MEDICATION 1 EA MIS (Memantine Hcl [Namenda Xr] 28 MG) PO SCH (20:30)
[2019-03-02] MEDS: ALPRAZolam 0.25 MG TAB PO SCH (20:32)
[2019-03-02] MEDS: ESCITALOPRAM 10 MG TAB PO SCH (20:33)
[2019-03-02] MEDS: ENOXAPARIN SODIUM 30 MG/0.3 ML SYG SUBCU SCH (20:51)
[2019-03-03] MEDS: SODIUM CHLORIDE 0.45% 1000ML 1,000 ML IVS PRN ×3 (01:41→21:56)
[2019-03-03] MEDS: MEROPENEM 1 GM in SODIUM CHL 0.9% 50ML MIN-BAG+ 50 ML IVPB SCH ×3 (01:41→17:29)
[2019-03-03] MEDS ORDERED: MEROPENEM 1 GM VIAL IVPB ONE ×3 (07:19→19:15)
[2019-03-03] MEDS ORDERED: SODIUM CHL 0.9% 50ML MIN-BAG+ 50 ML IVPB ONE ×3 (07:19→19:13)
[2019-03-03] MEDS: SPIRONOLACTONE 25 MG TAB PO SCH (08:19)
[2019-03-03] MEDS: levETIRAcetam 250 MG TAB PO SCH ×2 (08:19→20:58)
[2019-03-03] MEDS: QUEtiapine FUMARATE 25 MG TAB PO SCH ×3 (08:19→20:58)
[2019-03-03] MEDS ORDERED: levoFLOXacin 500MG IV 100 ML IVPB ONE (08:20)
[2019-03-03] MEDS: levoFLOXacin 500MG IV 500 MG in PREMIX BAG 1 BAG IVPB SCH (08:20)
[2019-03-03] MEDS: RIVASTIGMINE TARTRATE 6 MG PO SCH ×2 (08:21→20:59)
[2019-03-03] MEDS: IBUPROFEN 400 MG TAB PO PRN (08:36)
[2019-03-03] MEDS: LEVALBUTEROL NEBS 1.25 MG/3 ML VIAL NEB SCH ×4 (08:46→19:46)
[2019-03-03] MEDS ORDERED: MAGNESIUM SULFATE PREMIX 2GM 2 GM in PREMIX BAG 1 BAG IVPB ONE (08:49)
[2019-03-03] MEDS ORDERED: MAGNESIUM SULFATE PREMIX 2GM 50 ML IVPB ONE (09:43)
--- NOTE | 2019-03-03 16:29 | PN ---
SUPERVISING PHYSICIAN: Gonzales Farooq MD DATE: 03/03/19 SUBJECTIVE: The patient is resting in bed. He continues to run a fever this morning of 101. He does open his eyes and follows commands but does not converse. His is at the bedside. She says that he is near baseline mental status. OBJECTIVE: VITAL SIGNS: T-max temperature hours 101.0. Heart rate 76. Blood pressure 133/73. Respiratory rate 15. O2 saturation 95% on room air. I&O today shows positive balance of 3171, weight 66.3 kg. GENERAL: The patient is resting comfortably, he will open his eyes. He does not appear to be in any acute distress. He follows basic commands. CHEST: Lung sounds were diminished towards the bases, otherwise fairly clear. CARDIAC: Regular rate and rhythm. GASTROINTESTINAL: Abdomen is soft, nondistended. Bowel sounds are positive. EXTREMITIES: Without edema. NEUROLOGIC: He is awake and alert. He opens his eyes but is nonverbal. LABORATORY: White count still shows to be returning to baseline at 13,700, hemoglobin and hematocrit are stable at 10.5 and 32.3 respectively with a platelet count of 481,000. Differential does show a left shift. Chemistries show normal electrolytes today with a BUN of 18, creatinine is normalized at 1.12. Magnesium is still a little low at 1.7. Liver functions were within normal limits. MICROBIOLOGY: All his blood cultures remain negative. Urine culture showed a 28 gram negative bacilli. RADIOLOGY: No additional radiographic studies today. ASSESSMENT: 1. Sepsis secondary to urinary tract infection with right lower lobe pneumonia. 2. Acute on chronic renal failure, now at baseline levels, resolved. 3. Dehydration secondary to #1 and exacerbating #2, now resolved with fluids. 4. Advanced dementia with Lewy Body. 5. Congestive heart failure with no signs of exacerbation. 6. Advanced Parkinson's disease. 7. Constipation, chronic.. PLAN: We will continue on antibiotic coverage at this point with meropenem and Levaquin. Will await his final cultures results. Will go ahead and repeat a chest x-ray in the morning. He remains on aggressive pulmonary hygiene. His blood cultures will be followed, at this point they are still negative. Hopefully, he will continue to improve and as soon as he is without a fever at least for 24 hours and can be transitioned to oral medications, will transition. Until then, we will continue to monitor and treat as needed. [facility][id number] [facility]
[2019-03-03] MEDS: NON-FORMULARY MEDICATION 1 EA MIS (Memantine Hcl [Namenda Xr] 28 MG) PO SCH (20:56)
[2019-03-03] MEDS: ALPRAZolam 0.25 MG TAB PO SCH (20:57)
[2019-03-03] MEDS: ENOXAPARIN SODIUM 30 MG/0.3 ML SYG SUBCU SCH (20:58)
[2019-03-03] MEDS: ESCITALOPRAM 10 MG TAB PO SCH (20:58)
[2019-03-03] MEDS: IV SET AND CAP CHANGE INJ INJ SCH (22:06)
[2019-03-04] MEDS: MEROPENEM 1 GM in SODIUM CHL 0.9% 50ML MIN-BAG+ 50 ML IVPB SCH (01:15)
[2019-03-04] MEDS: SODIUM CHLORIDE 0.45% 1000ML 1,000 ML IVS PRN ×2 (05:47→18:06)
--- NOTE | 2019-03-04 07:09 | RAD ---
EXAM: XR Chest, 1 View CLINICAL HISTORY: rt side pneumonia TECHNIQUE: Frontal view of the chest. COMPARISON: 03/02/2019. FINDINGS: Lungs: Increased bilateral basilar airspace consolidation and vascular congestion noted. Pleural space: Unremarkable. No pneumothorax. Heart: Stable cardiac enlargement. Mediastinum: Unremarkable. Bones/joints: Unremarkable. IMPRESSION: Worsening bilateral basilar atelectasis or pneumonia and vascular congestion. Electronically signed by: Elizabeth Johnston MD 03/04/2019 7:08 AM [facility]
[2019-03-04] MEDS: SPIRONOLACTONE 25 MG TAB PO SCH (08:13)
[2019-03-04] MEDS: levETIRAcetam 250 MG TAB PO SCH ×2 (08:13→20:18)
[2019-03-04] MEDS: QUEtiapine FUMARATE 25 MG TAB PO SCH ×3 (08:13→20:18)
[2019-03-04] MEDS ORDERED: cefTRIAXone SODIUM 1 GM VIAL ONE (08:33)
[2019-03-04] MEDS ORDERED: SODIUM CHL 0.9% 50ML MIN-BAG+ 50 ML IVPB ONE (08:33)
[2019-03-04] MEDS: cefTRIAXone SODIUM 1 GM in SODIUM CHL 0.9% 50ML MIN-BAG+ 50 ML IVPB SCH (08:35)
[2019-03-04] MEDS: LEVALBUTEROL NEBS 1.25 MG/3 ML VIAL NEB SCH ×4 (08:38→20:03)
[2019-03-04] MEDS ORDERED: levoFLOXacin 500MG IV 100 ML IVPB ONE (09:08)
[2019-03-04] MEDS: levoFLOXacin 500MG IV 500 MG in PREMIX BAG 1 BAG IVPB SCH (09:10)
[2019-03-04] MEDS: RIVASTIGMINE TARTRATE 6 MG PO SCH ×2 (09:11→20:18)
--- NOTE | 2019-03-04 11:40 | PN ---
SUPERVISING PHYSICIAN: Bernard Farooq MD DATE: 03/04/19 SUBJECTIVE: The patient is doing much better today. He is awake, alert, actually is conversing and appears to be back to his baseline mental status. He has been afebrile now for 24 hours. He is not having any further complaints. OBJECTIVE: VITAL SIGNS: T-max 99.0. Pulse 66. Blood pressure 154/69. Respirations 18. Saturation 95% on room air. GENERAL: The patient is alert this morning, actually conversing. He appears to be at his baseline mental status. He appears to be in no acute distress. CHEST: Lung sounds are improving, just very faint rhonchi heard on the right lower posterior aspect. CARDIAC: Regular rate and rhythm. EXTREMITIES: Without edema. NEUROLOGIC: He is alert, conversing, appears to be back at his baseline mental status. There are no obvious neuromotor deficits. LABORATORY: White count now down to 12,400, hemoglobin down to 9.9, hematocrit 30.2, platelet count 457,000. Differential shows continued left shift. Chemistries were normalized today. The only thing repeated today was magnesium and is normal at 1.9. MICROBIOLOGY: His urine culture came back with E. coli which is resistant to fluoroquinolones, but sensitive to cephalosporins and Bactrim, Zosyn and Macrobid. RADIOLOGY: Chest x-ray per radiologic interpretation shows worsened bilateral basilar atelectasis or pneumonia and vascular congestion. ASSESSMENT: 1. Sepsis secondary to urinary tract infection and right lower lobe pneumonia with final culture results on urine showing Escherichia coli. 2. Urinary tract infection with final culture results showing Escherichia coli. 3. Acute on chronic renal failure, now at baseline levels. 4. Dehydration secondary to #1, resolved. 5. Advanced dementia with Lewy Body. 6. Congestive heart failure with no signs of exacerbation. 7. Advanced Parkinson's disease. 8. Constipation, chronic. PLAN: Given the urine culture results, we will change from meropenem and Levaquin to Levaquin and Rocephin. We will leave the Levaquin today as he did run a fever yesterday and has right sided pneumonia and the Rocephin will cover for the E. coli. We will repeat his CBC tomorrow as his hemoglobin and hematocrit are showing a little bit of decrease daily as well as make sure his white count is responding. He is supposed to be evaluated today by [facility]. I expect that if we can transition him to oral medications, we can discharge within the next 24 to 48 hours. #[id number] [facility]
[2019-03-04] MEDS: ALPRAZolam 0.25 MG TAB PO SCH (20:17)
[2019-03-04] MEDS: NON-FORMULARY MEDICATION 1 EA MIS (Memantine Hcl [Namenda Xr] 28 MG) PO SCH (20:17)
[2019-03-04] MEDS: ESCITALOPRAM 10 MG TAB PO SCH (20:18)
[2019-03-04] MEDS: ENOXAPARIN SODIUM 30 MG/0.3 ML SYG SUBCU SCH (20:18)
[2019-03-05] MEDS: SODIUM CHLORIDE 0.45% 1000ML 1,000 ML IVS PRN (05:29)
[2019-03-05] MEDS ORDERED: SODIUM CHL 0.9% 50ML MIN-BAG+ 50 ML IVPB ONE (08:27)
[2019-03-05] MEDS ORDERED: cefTRIAXone SODIUM 1 GM VIAL ONE (08:28)
[2019-03-05] MEDS: levETIRAcetam 250 MG TAB PO SCH (08:32)
[2019-03-05] MEDS: QUEtiapine FUMARATE 25 MG TAB PO SCH (08:32)
[2019-03-05] MEDS: SPIRONOLACTONE 25 MG TAB PO SCH (08:32)
[2019-03-05] MEDS: RIVASTIGMINE TARTRATE 6 MG PO SCH (08:36)
[2019-03-05] MEDS: LEVALBUTEROL NEBS 1.25 MG/3 ML VIAL NEB SCH (08:45)
[2019-03-05] MEDS: cefTRIAXone SODIUM 1 GM in SODIUM CHL 0.9% 50ML MIN-BAG+ 50 ML IVPB SCH (08:47)
[2019-03-05 08:49] VITALS: BP 120/68; TEMP 98.5
[2019-03-05] MEDS ORDERED: levoFLOXacin 500MG IV 100 ML IVPB ONE (09:06)
[2019-03-05] MEDS: levoFLOXacin 500MG IV 500 MG in PREMIX BAG 1 BAG IVPB SCH (09:09)
[2019-03-05 09:32] VITALS: O2SAT 95
--- NOTE | 2019-03-05 10:46 | DS ---
SUPERVISING PHYSICIAN: Bernard Farooq MD ADMISSION DIAGNOSIS: 1. Sepsis secondary to urinary tract infection. 2. Acute on chronic renal failure. 3. Severe dehydration. 4. Advanced Lewy Body dementia. 5. Congestive heart failure history. 6. Advanced Parkinson's disease. 7. Constipation. DISCHARGE DIAGNOSIS: 1. Sepsis secondary to Escherichia coli urinary tract infection with some drug resistance. 2. Right lower lobe pneumonia. 3. Acute on chronic renal failure, resolved. 4. Dehydration, resolved. 5. Advanced Lewy Body dementia. 6. Congestive heart failure with no exacerbation. 7. Advanced Parkinson's disease. 8. Constipation. HOSPITAL COURSE: This is an 83-year-old male patient who lives at [facility]. He came to the Emergency Room with a fever of 104. He also had decreased level of consciousness on top of his chronic dementia. When he was seen in the Emergency Room, he was found to have some hypotension with a blood pressure 68/38. Also, he had leukocytosis of 23,000. His blood pressure responded to fluid resuscitation. He was placed on empiric antibiotics. Urinalysis was obtained after getting a Bell catheter. He was found to have E. coli urinary tract infection which then later showed to have some resistance. He was on Merrem and Levaquin initially. Although the E. coli is resistant to Levaquin, he was left on this because of development of a right lower lobe infiltrate. The Merrem was deescalated to Rocephin given the sensitivities. There was no bacterial growth on the blood cultures. The patient's mentation improved and he got back to his baseline. Today, on day of discharge, the patient has been afebrile since midnight. He is alert, but not oriented, but that is his baseline. He is not having any problems breathing. I stopped his IV fluids with instructions to discontinue the catheter and he can be released back to the assisted living today. I have written a prescription for doxycycline for the pneumonia as well as Macrobid for the urinary tract infection. I have also written a prescription for Xopenex to be given 3 times a day. The patient had can followup with his primary care physician, Dr. Farooq, in 1 to 2 weeks. Activity is as tolerated, but he utilize a walker for ambulation. Diet is as per usual diet. #[id number] [facility]
== END 2019-03-05 10:46 | DRG 871 ==
LOC: ER 17:30 → OBSVTOIN 21:35 → MS 21:35
PROVIDERS: ADMIT Nurse Practitioner Acute Care; ATTEND Nurse Practitioner Acute Care
DX: A41.51 Sepsis due to Escherichia coli [E. coli] (principal); J18.9 Pneumonia, unspecified organism; N39.0 Urinary tract infection, site not specified; N17.9 Acute kidney failure, unspecified; I50.30 Unspecified diastolic (congestive) heart failure; R64 Cachexia; Z16.23 Resistance to quinolones and fluoroquinolones; E86.0 Dehydration; N18.9 Chronic kidney disease, unspecified; G20 Parkinson's disease; K59.00 Constipation, unspecified; G31.83 Neurocognitive disorder with Lewy bodies; F02.80 Dementia in other diseases classified elsewhere, unspecified severity, without behavioral disturbance, psychotic disturbance, mood disturbance, and anxiety; K59.09 Other constipation; Z66 Do not resuscitate; Z79.899 Other long term (current) drug therapy; Z68.22 Body mass index [BMI] 22.0-22.9, adult

== ENCOUNTER 2019-03-17 16:54 | Inpatient (IN) | payer MEDICARE, BC ==
[2019-03-17] MEDS ORDERED: SODIUM CHLORIDE 0.9% (FLUSH) 10 ML SYG IV PRN ×2 (17:13→22:53)
--- NOTE | 2019-03-17 17:14 | ED.PDOC ---
History of Present Illness - General Time Seen by Provider: 03/17/19 17:13 Source: family - History of Present Illness Initial Comments: 83 yo male with PMH of advanced Lewy Body dementia, Parkinson's, CHF who is bib family from [facility] assisted living, sent from clinic for cc of abnormal labwork. His WBC was noted to be 40,000 so pt was sent to the ED for further eval. Pt was discharged from the hospital recently on 03/03/19 for sepsis, MDR E coli UTI, and PNA. His WBC during that stay was intiially 23,000. He was on Abx of Merrem & Levaquin, then transitioned to Rocephin, and sent home on Macrobid and doxycycline for UTI & PNA. reports she last saw him 4 days ago and today he seems much less alert/responsive than usual. Reports he began running low-grade fevers today with 99 F temp at [facility]. History from patient markedly limited given his dementia, AMS, but he is able to answer some simple questions. Denies any acute complaints, chest pain, dyspnea, abd pain, urinary sx's. Allergies/Adverse Reactions: Allergies NO KNOWN ALLERGY Allergy (Verified 03/17/19 17:32) Home Medications: Ambulatory Orders ALPRAZolam [Xanax] 0.25 mg PO BEDTIME 10/02/18 Escitalopram [Lexapro] 10 mg PO BEDTIME 10/02/18 Levetiracetam [Keppra] 500 mg PO BID 10/02/18 Quetiapine Fumarate [Seroquel] 25 mg PO BEDTIME 10/02/18 Rivastigmine Tartrate [Exelon] 6 mg PO BID 10/02/18 Acetaminophen [Tylenol] 1,000 mg PO Q4H PRN 02/28/19 Quetiapine Fumarate [Seroquel] 25 mg PO BID PRN 02/28/19 Ropinirole Hydrochloride 3 mg PO TID 02/28/19 Spironolactone [Aldactone] 25 mg PO DAILY 02/28/19 Doxycycline (Monohydrate) [Doxycycline Monohydrate] 100 mg PO BID 10 Days #20 cap 03/05/19 Levalbuterol Nebs [Xopenex NEBS] 1.25 mg NEB RTTID 30 Days #2 b 03/05/19 Review of Systems - Review of Systems Review of Systems: 03/17/19 17:34 as per HPI All other Systems: Reviewed and Negative Past Medical History (General) - Patient Medical History Hx Seizures: No Hx Stroke: No Hx Dementia: Yes Hx Asthma: No Hx of COPD: No Hx Cardiac Disorders: No Hx Congestive Heart Failure: No Hx Pacemaker: No Hx Hypertension: No Hx Thyroid Disease: No Hx Diabetes: No Hx Gastroesophageal Reflux: No Hx Renal Disease: No Hx Cancer: No Hx of HIV: No Hx Hepatitis C: No Hx MRSA: No Surgical History: no surgical history - Vaccination History Hx Influenza Vaccination: Yes Hx Pneumococcal Vaccination: Yes - Social History Hx Tobacco Use: No Hx Chewing Tobacco Use: No Hx Alcohol Use: Yes - Not in the past 5 years. Hx Substance Use: No Hx Substance Use Treatment: No Hx Depression: No Feels Threatened In Home Enviroment: No Feels Threatened In a Relationship: No Hx Physical Abuse: No Hx Emotional Abuse: No Hx Suspected Abuse: No - Activities of Daily Living Senior Care/Assisted Living (if applicable):: [facility] - Female History Patient is a Female of Child Bearing Age (10 -59 yrs old): No Family Medical History - Family History Father Family History: Unknown Living Status: Unknown Physical Exam - Physical Exam General Appearance: Comfortable, No apparent distress, Well Developed, Well Hydrated Eye Exam: bilateral normal Ears, Nose, Throat: hearing grossly normal, normal ENT inspection, normal pharynx Neck: non-tender, full range of motion, supple, normal inspection Respiratory: lungs clear, normal breath sounds, no respiratory distress, no accessory muscle use Cardiovascular/Chest: normal peripheral pulses, regular rate, rhythm, no murmur, other - 3+ BL LE pitting edema of feet and ankles Peripheral Pulses: radial,right: 2+, radial,left: 2+ Gastrointestinal/Abdominal: non tender, no organomegaly, no pulsatile mass, other - pt eliot abdominal musculature during exam, denies any focal ttp Back Exam: normal inspection, no CVA tenderness, no vertebral tenderness Extremity: normal range of motion, non-tender, normal inspection, no calf tenderness, pedal edema Neurologic: research project coordinator II-XII nml as tested, no motor/sensory deficits, other - pt sitting in bed, awake, alert, answers simple questions only, follows commands, moves all extremities, no focal deficits appreciated Skin Exam: normal color, warm/dry Lymphatic: no adenopathy Progress - Progress Progress: 03/17/19 17:36 Marked leukocytosis -along with low-grade fevers and recent hx of sepsis, MDR E coli UTI, & PNA - concern for return of infection/sepsis. Consider also leukemia vs other infectious source vs dehydration vs other -Temp 98.6 F on arrival, HR/RR/BP wnl which is reassuring. Possibly some abdominal guarding on exam -stat lactate, blood cx's, labs -1 L NS bolus, place doyle 03/17/19 20:20 -Repeat labs show WBC 32,000 with 90% segs and no bands, lactate 1.6. BUN 20, Cr 1.1, UA with 10-20 WBC, +leuk esterase concerning for UTI. -CT Chest & A/P w/contrast shows small groundglass opacities BL lung bases concerning for possible PNA. Also with mild hydronephrosis and stranding of Right kidney concerning for recently passed stone and acute pyelonephritis. Also with large impaction of stool in rectal vault. -Discussed with Geraldo Cerrato who accepts for admission for Acute pyelo, obstipation, and leukocytosis. Will begin Merrem 1 g IV for pyelo. Miralax 17 g PO for constipation. Pito De Santiago MD Billing #[id number] 03/17/19 17:13 IV Care:Saline Lock per Protoc QSHIFT Telemetry .ONCE Sodium Chloride 0.9% (Flush) [Saline Flush Syringe] 10 ml IV PRN PRN 03/17/19 17:15 EKG STAT 03/17/19 17:22 BLOOD CULTURE Stat 03/17/19 17:30 Catheter:Doyle QSHIFT Intake/Output PRN 03/17/19 17:40 Urine Culture Stat 03/17/19 18:26 Hold Metformin x 48Hrs [id number] 03/17/19 18:27 INFLUENZA A & B BY PCR Stat 03/17/19 20:16 Meropenem [Merrem] 1 gm Sodium Chl 0.9% 50Ml Min-Bag+ [NS 50ml MINI-BAG+] 50 ml IVPB ONCE 03/17/19 20:20 BOLUS Sodium Chloride 0.9% 1000ML [Ns 1000 ml] 1,000 ml IVS ONCE 03/18/19 09:00 Pulse Ox Daily Laboratory Results - last 24 hr 03/17/19 03/17/19 03/17/19 17:22 17:22 17:22 WBC 32.6 H* RBC 4.34 L Hgb 12.0 L Hct 37.1 L MCV 85.5 MCH 27.6 MCHC 32.3 L RDW 17.6 H Plt Count 738 H MPV 8.4 Absolute Neuts (auto) Not Reportable Absolute Lymphs (auto) Not Reportable Absolute Monos (auto) Not Reportable Absolute Eos (auto) Not Reportable Neutrophils % Not Reportable Neutrophils % (Manual) 90.0 H Lymphocytes % Not Reportable Lymphocytes % (Manual) 2.0 Monocytes % Not Reportable Monocytes % (Manual) 5.0 Eosinophils % Not Reportable Basophils % Not Reportable Band Neutrophils 1.0 Eosinophils 1.0 Basophils 1.0 Platelet Estimate Increased Anisocytosis 1+ Sodium 142 Potassium 4.4 Chloride 101 Carbon Dioxide 29 Anion Gap 16.4 BUN 20 H Creatinine 1.11 BUN/Creatinine Ratio 18.0 Random Glucose 113 H Serum Osmolality 286.5 Lactic Acid 1.6 Calcium 9.5 Total Bilirubin 0.5 AST 38 ALT 24 Alkaline Phosphatase 108 B-Natriuretic Peptide 179.0 H Serum Total Protein 7.1 Albumin 3.5 Globulin 3.6 H Albumin/Globulin Ratio 1.0 L Urine Color Urine Appearance Urine pH Ur Specific Hawley Urine Protein Urine Glucose (UA) Urine Ketones Urine Blood Urine Nitrite Urine Bilirubin Urine Urobilinogen Ur Leukocyte Esterase Urine RBC Urine WBC Ur Epithelial Cells Urine Bacteria Urine Mucus 03/17/19 17:40 WBC RBC Hgb Hct MCV MCH MCHC RDW Plt Count MPV Absolute Neuts (auto) Absolute Lymphs (auto) Absolute Monos (auto) Absolute Eos (auto) Neutrophils % Neutrophils % (Manual) Lymphocytes % Lymphocytes % (Manual) Monocytes % Monocytes % (Manual) Eosinophils % Basophils % Band Neutrophils Eosinophils Basophils Platelet Estimate Anisocytosis Sodium Potassium Chloride Carbon Dioxide Anion Gap BUN Creatinine BUN/Creatinine Ratio Random Glucose Serum Osmolality Lactic Acid Calcium Total Bilirubin AST ALT Alkaline Phosphatase B-Natriuretic Peptide Serum Total Protein Albumin Globulin Albumin/Globulin Ratio Urine Color Yellow Urine Appearance Clear Urine pH 5.0 Ur Specific Hawley 1.020 Urine Protein Negative Urine Glucose (UA) 100 H Urine Ketones Negative Urine Blood Negative Urine Nitrite Negative Urine Bilirubin Negative Urine Urobilinogen 0.2 Ur Leukocyte Esterase Small H Urine RBC 0-1 Urine WBC 10-20 H Ur Epithelial Cells 0-1 Urine Bacteria Rare Urine Mucus Trace - EKG/XRAY/CT EKG: Sinus - NSR, HR 85, no ST elevations or q waves, axis & intervals normal, no prior EKG for comparison Departure - Departure Clinical Impression: Pyelonephritis of right kidney, Obstipation Leukocytosis Qualifiers: Leukocytosis type: unspecified Qualified Code(s): D72.829 - Elevated white blood cell count, unspecified Time of Disposition: 20:24 Disposition: Admit Patient Condition: Fair Referrals: KARISSA SALAMANCA MD [Primary Care Provider] - 1-2 Weeks Home Medications: Ambulatory Orders ALPRAZolam [Xanax] 0.25 mg PO BEDTIME 10/02/18 Escitalopram [Lexapro] 10 mg PO BEDTIME 10/02/18 Levetiracetam [Keppra] 500 mg PO BID 10/02/18 Quetiapine Fumarate [Seroquel] 25 mg PO BEDTIME 10/02/18 Rivastigmine Tartrate [Exelon] 6 mg PO BID 10/02/18 Acetaminophen [Tylenol] 1,000 mg PO Q4H PRN 02/28/19 Quetiapine Fumarate [Seroquel] 25 mg PO BID PRN 02/28/19 Ropinirole Hydrochloride 3 mg PO TID 02/28/19 Spironolactone [Aldactone] 25 mg PO DAILY 02/28/19 Doxycycline (Monohydrate) [Doxycycline Monohydrate] 100 mg PO BID 10 Days #20 cap 03/05/19 Levalbuterol Nebs [Xopenex NEBS] 1.25 mg NEB RTTID 30 Days #2 b 03/05/19 Decision To Admit - Decistion To Admit Decision to Admit Reason: Admit from ER Decision to Admit Date: 03/17/19 Decision to Admit Time: 20:24
[2019-03-17] MEDS ORDERED: SODIUM CHLORIDE 0.9% 1000ML 1,000 ML IVS ONE ×2 (17:39→20:20)
--- NOTE | 2019-03-17 18:13 | RAD ---
EXAM DESCRIPTION: Chest,1 View CLINICAL HISTORY: 83 years Male marked leukocytosis COMPARISON: 03/04/2019 FINDINGS: The cardiomediastinal silhouette appears unremarkable. No consolidating infiltrates or pleural effusions. No pneumothorax. Elevation of the right hemidiaphragm similar to the patient's previous exam. IMPRESSION: No acute abnormality is identified. Electronically signed by: Lety Moore MD 03/17/2019 6:12 PM [employer]
--- NOTE | 2019-03-17 20:04 | CT ---
PROCEDURE: Chest w/Contrast CLINICAL HISTORY: 83 years Male marked leukocytosis, infectious source unclear TECHNIQUE: Contiguous axial images obtained through the chest after IV contrast administration. Coronal and sagittal reformatted images provided. This CT exam was performed according to our departmental dose-optimization program, which includes one or more of the following dose reduction techniques: automated exposure control, adjustment of the mA and/or kV according to patient size, and/or use of iterative reconstruction technique. COMPARISON: Correlation is made with the radiographs obtained earlier the same day FINDINGS: There is an 8 mm spiculated nodule in the left lower lobe. There are subtle groundglass nodules and opacities scattered in both lower lobes, left greater than right. The upper and mid lungs are clear. No pleural effusion or pneumothorax. Borderline cardiac size without pericardial effusion. Minimal atherosclerosis without thoracic aortic aneurysm. No visualized lymphadenopathy in the chest. Nonspecific 8 mm focus of low attenuation in the dome of the liver. Visualized upper abdominal structures otherwise normal. Chronic degenerative changes throughout the thoracic spine without acute fracture or aggressive osseous lesion. Moderate chronic arthrosis at both shoulders. IMPRESSION: 8 mm spiculated nodule in the left lower lobe with subtle groundglass nodules and opacities scattered in both lower lobes, left greater than right. While findings may be infectious, recommend a noncontrast chest CT at 6-12 months, then consider an additional noncontrast chest CT at 18-24 months. Electronically signed by: Emily Bach MD 03/17/2019 8:03 PM TRACK MECH[employer]IC
--- NOTE | 2019-03-17 20:07 | CT ---
EXAM: CT Abdomen and Pelvis With Intravenous Contrast CLINICAL HISTORY: marked leukocytosis, infectious source unclear TECHNIQUE: Axial computed tomography images of the abdomen and pelvis with intravenous contrast. Sagittal and coronal reformatted images were created and reviewed. This CT exam was performed using one or more of the following dose reduction techniques: automated exposure control, adjustment of the mA and/or kV according to patient size, and/or use of iterative reconstruction technique. COMPARISON: No relevant prior studies available. FINDINGS: Lung bases: Unremarkable. No mass. No consolidation. ABDOMEN: Liver: Tiny hepatic cysts present. Gallbladder and bile ducts: Unremarkable. No calcified stones. No ductal dilation. Pancreas: Unremarkable. No mass. No ductal dilation. Spleen: The spleen is enlarged measuring 13.2 cm long. Adrenals: Unremarkable. No mass. Kidneys and ureters: There is a 6 mm hypodensity in the midpole left kidney likely cysts but too small to characterize. There is mild right hydroureteronephrosis. No stones identified. There is homogeneous bilateral renal enhancement.. Stomach and bowel: Large amounts of stool noted throughout the colon and in particular in the rectum. No inflammatory process noted. No obstruction. No mucosal thickening. PELVIS: Appendix: No findings to suggest acute appendicitis. Bladder: Urinary bladder is collapsed. Wall thickness not accurately assessed. Bell balloon inflated within the lumen. Reproductive: Unremarkable as visualized. ABDOMEN and PELVIS: Intraperitoneal space: Unremarkable. No free air. No significant fluid collection. Bones/joints: Degenerative changes present in the spine with multiple levels of lumbar stenosis. Soft tissues: Incidental note is made of asymmetric size of the psoas muscles with the left larger than the right. There is no evident fluid collection or surrounding inflammation. Vasculature: Atherosclerosis of the aorta and branches noted. No abdominal aortic aneurysm. Lymph nodes: Unremarkable. No enlarged lymph nodes. IMPRESSION: 1. Urinary bladder is collapsed by a catheter and is not optimally assessed. Cystitis not excluded. Correlate with urinalysis. 2. There is mild right hydroureteronephrosis. Recently passed stone and pyelonephritis should be considered. 3. Left psoas muscle larger than the right without evidence abscess, hematoma or inflammation. This may represent normal state for the patient. 4. Mild splenomegaly Electronically signed by: Elizabeth Johnston MD 03/17/2019 8:06 PM [employer] ARCHIV[employer]
[2019-03-17] MEDS ORDERED: MEROPENEM 1 GM in SODIUM CHL 0.9% 50ML MIN-BAG+ 50 ML IVPB ONE (20:16)
[2019-03-17] MEDS ORDERED: POLYETHYLENE GLYCOL 3350 17 GM PCKT PO ONE (20:16)
[2019-03-17] MEDS ORDERED: MEROPENEM 1 GM VIAL IVPB ONE (20:29)
[2019-03-17] MEDS ORDERED: SODIUM CHL 0.9% 50ML MIN-BAG+ 50 ML IVPB ONE (20:29)
[2019-03-17] MEDS ORDERED: BISACODYL SUPPOSITORY 10 MG PR ONE (22:47)
[2019-03-17] MEDS ORDERED: ALBUTEROL SULFATE 2.5 MG/3 ML VIAL NEB PRN (22:53)
[2019-03-17] MEDS ORDERED: ONDANSETRON INJ 4 MG/2 ML VIAL IV PRN (22:53)
[2019-03-17] MEDS ORDERED: ACETAMINOPHEN 325 MG TAB PO PRN (22:53)
[2019-03-17] MEDS ORDERED: MAGNESIUM HYDROXIDE 30 ML UD PO PRN (22:53)
[2019-03-17] MEDS ORDERED: SODIUM CHLORIDE 0.9% 250ML 250 ML ONE (23:12)
[2019-03-17] MEDS ORDERED: VANCOMYCIN HCL INJ 1,000 MG VIAL IVPB ONE (23:13)
[2019-03-17] MEDS: levoFLOXacin 750MG IV 750 MG in PREMIX BAG 1 BAG IVPB SCH (23:30)
[2019-03-17] MEDS: SODIUM CHLORIDE 0.45% 1000ML 1,000 ML IVS PRN (23:30)
[2019-03-17] MEDS: IV SET AND CAP CHANGE INJ INJ SCH (23:30)
[2019-03-18] MEDS: VANCOMYCIN HCL INJ 1,000 MG in SODIUM CHLORIDE 0.9% 250ML 250 ML IVPB SCH ×3 (00:11)
--- NOTE | 2019-03-18 05:29 | RAD ---
CHEST, ONE VIEW XR CLINICAL HISTORY: Pneumonia COMPARISON: 03/17/2019 TECHNIQUE: AP Chest. FINDINGS: [Normal cardiac size. Minimal aortic atherosclerosis. Pulmonary vasculature appears normal. Normal cardiomediastinal contours. Lungs are clear. Pleural spaces are clear. Unremarkable soft tissues. Mild degenerative thoracic spine changes. IMPRESSION: 1. No acute chest disease. Electronically signed by: Leta Sheets DO 03/18/2019 5:27 AM CASH PERSON
[2019-03-18] MEDS: PANTOPRAZOLE SODIUM IV 40 MG VIAL IV SCH (06:20)
[2019-03-18] MEDS ORDERED: VANCOMYCIN PER PHARMACY IVPB SCH (08:00)
[2019-03-18] MEDS ORDERED: SODIUM CHL 0.9% 50ML MIN-BAG+ 50 ML IVPB ONE ×2 (08:16→20:36)
[2019-03-18] MEDS ORDERED: MEROPENEM 1 GM VIAL IVPB ONE ×2 (08:16→20:38)
[2019-03-18] MEDS: POLYETHYLENE GLYCOL 3350 17 GM PCKT PO SCH (08:22)
[2019-03-18] MEDS: IPRATROPIUM/ALBUTEROL 3 ML VIAL INH SCH ×4 (08:57→20:01)
--- NOTE | 2019-03-18 09:15 | HP ---
SUPERVISING PHYSICIAN: Ariel Kruger MD CHIEF COMPLAINT: Abnormal white count in the clinic. HISTORY OF PRESENT ILLNESS: Mr. Carranza is an 83-year-old male patient with a past medical history of Lewy Body dementia with Parkinson's complicated by congestive heart failure. He was brought in by family from [facility] to the clinic with collected lab work. His initial lab was noted to be with 40,000 white count, so the patient was admitted for further evaluation. He was just discharged from the hospital on 03/03/19 due to sepsis and multiple drug resistant E. coli urinary tract infection with pneumonia. Review of that record shows his white count initially was 23,000. He was treated with meropenem and Levaquin and transitioned to Rocephin and discharged on Macrobid and doxycycline for treatment of urinary tract infection and pneumonia. His endorses that she saw him four days previously and he was himself at that time, but prior to admission to the Emergency Room today, he was much less alert and responsive than his usual self. She noted he began running a low grade fever at the [facility] . History is significantly limited due to dementia and acute mental status change. He is not able to answer any questions, therefore, the majority of the history and physical is obtained from previous records and his who is also a poor historian. There was no mention of any other complaints of chest pain, dyspnea, abdominal pain or other urinary symptoms. Vital signs in the Emergency Room showed that he was stable hemodynamically with temperature 98.6, pulse 92, blood pressure 121/83, respirations 16, saturation 96% on room air. Imaging studies were completed including abdominopelvic CT with contrast and per radiologic interpretation was noted some mild hydroureteronephrosis with consideration of possible recent urinary stone or developing pyelonephritis. CT of the chest without contrast per radiologic interpretation showed an 8 mm spiculated nodule in the left lower lobe with a subtle ground glass nodule and opacity scattered in both lower lung gibson, left greater than right. Given his past medical history and concerns for the white count which on initial workup was 32,600 with a left shift and bands, urinalysis was completed from Bell replacement and showed just 100 of glucose, small amount of leukocyte esterase. Microscopic revealed 0 to 1 RBCs, 10 to 20 WBCs, rare bacteria and trace amount of mucous membranes. Urine cultures were submitted. Influenza A by PCR was also completed which was negative. Blood cultures were drawn and he started on antibiotics initially to include meropenem. Due to leukocytosis with possible developing pyelonephritis, he is going to be admitted for further treatment and evaluation. He does have high risk factors for multi-drug resistant organisms as demonstrated in the past. Therefore, we will also need additional parenteral antibiotics and close monitoring. PAST MEDICAL HISTORY: 1. Lewy Body dementia. 2. Parkinson's disease. 3. Congestive heart failure with etiology unknown with a mild diastolic dysfunction. PAST SURGICAL HISTORY: Not known. CURRENT MEDICATIONS: As per the electronic medical record and awaiting verification of those records. ALLERGIES: NO KNOWN DRUG ALLERGIES. FAMILY HISTORY: Noncontributory. SOCIAL HISTORY: The patient is retired and lives in the Memory Unit at [facility]. He is with 2 children. He has no history of tobacco, illicit drug or alcohol usage. REVIEW OF SYSTEMS: Unable to obtain due to the patient's mental status. PHYSICAL EXAMINATION: VITAL SIGNS: Temperature 98.6. Pulse 92. Blood pressure 121/83. Respirations 16. Saturation 96% on room air. GENERAL: On examination in the Emergency Room, the patient was found to be in no acute distress, well-developed, well-hydrated, appears to be comfortable. HEENT: Tympanic membranes clear bilaterally. Oropharynx is pink, moist without any lesions. NECK: Supple, nontender with full range of motion. No jugular venous distention noted. RESPIRATORY: Lungs clear to auscultation bilaterally without any obvious rhonchi, wheezes or rales. CARDIOVASCULAR: Regular rate and rhythm without any appreciable murmurs, gallops, or rubs. ABDOMEN: Mildly firm, but nontender. No focal tenderness noted on palpation. No pulsatile masses or organomegaly. Bowel sounds active. BACK: Normal to inspection without any sores, lesions or rashes. No CVA tenderness or vertebral tenderness. EXTREMITIES: 2+ bilateral lower extremity pitting edema to the feet and ankles. Otherwise, no cyanosis or clubbing. He moves all extremities ad bertrand. NEUROLOGIC: Cranial nerves II-XII are grossly intact. Significantly difficult to obtain due to the patient's mental status. He is alert, awake, answers very simple questions, follows commands. Moving all extremities. There are no obvious focal deficits noted. SKIN: Warm, pink and dry. LABORATORY: White count 32,600, hemoglobin 12.0, hematocrit 37.0, platelet count 738,000. Differential showed a left shift with increased bands. Chemistry shows normal electrolytes with BUN 20, creatinine 1.11. Liver functions all within normal limits. Calcium normal at 9.5. Lactic acid normal at 1.6. Urinalysis showed 100 glucose with small amount of leukocyte esterase. Microscopic reveals 0 to 1 RBCs, 10 to 20 WBCs with rare bacteria. RADIOLOGY: Pelvis, abdomen CT with contrast per radiologic interpretation revealed mild hydroureteronephrosis on the right with questionable recently passed stone or pyelonephritis developing. Please see that report for details. CT of the chest per radiologic interpretation showed an 8 mm spiculated nodule in the left lower lobe with several ground glass nodular opacities scattered in both lower lobes, left greater than right. Please see that report for details. ASSESSMENT: 1. Sepsis with severe leukocytosis secondary to probable pyelonephritis on the right and developing bilateral pneumonia as noted on CT of the chest. 2. Urinary tract infection in the form of pyelonephritis with the patient having a history of multi-drug resistant Escherichia coli and recently having been on Levaquin and meropenem within the last three weeks. 3. Possible healthcare acquired pneumonia versus community acquired pneumonia with the patient recently being in the hospital for bilateral lobe pneumonia treated with Levaquin with multiple drug resistant risk factors in the form of questionable Pseudomonas and methicillin-resistant Staphylococcus aureus. 4. Severe constipation as noted on CT. 5. History of Lewy Body dementia. 6. History of Parkinson's disease. 7. Congestive heart failure with unknown etiology with no current echocardiogram available at this time for review with the patient showing no signs or symptoms of exacerbation. PLAN: Mr. Carranza is going to be admitted for treatment of sepsis due to pyelonephritis and bilateral healthcare acquired pneumonia versus community acquired pneumonia. Given that he has multiple risk factors and has demonstrated multi-drug resistant E. coli in the past, we will start him on meropenem, Levaquin and vancomycin and await culture results. I have ordered enemas, stool softeners to help relief his constipation which on CT is obviously significant. He did have a Bell exchange in the Emergency Room. He will be on DVT prophylaxis per protocol. We will review his medications, update them and resume as appropriate to care. I anticipate his length of stay to be two to three days. We will plan to repeat lab and x-rays in the morning. Until the patient can transition to outpatient management, we will continue to monitor and treat as needed. #[id number] [facility]
[2019-03-18] MEDS: MEROPENEM 1 GM in SODIUM CHL 0.9% 50ML MIN-BAG+ 50 ML IVPB SCH ×2 (11:38→22:50)
[2019-03-18] MEDS: SODIUM CHLORIDE 0.45% 1000ML 1,000 ML IVS PRN (13:06)
[2019-03-18] MEDS ORDERED: SODIUM CHLORIDE 0.9% 250ML 250 ML ONE (15:33)
[2019-03-18] MEDS ORDERED: VANCOMYCIN HCL INJ 500 MG VIAL ONE (15:33)
[2019-03-18] MEDS ORDERED: VANCOMYCIN HCL INJ 1,000 MG VIAL IVPB ONE (15:34)
[2019-03-18] MEDS: VANCOMYCIN HCL INJ 1,000 MG, VANCOMYCIN HCL INJ 250 MG in SODIUM CHLORIDE 0.9% 250ML 25... IVPB SCH (15:57)
--- NOTE | 2019-03-18 20:03 | PN ---
SUPERVISING PHYSICIAN: Ariel Kruger MD DATE: 03/18/19 SUBJECTIVE: The patient is lying in bed. He has a difficult time speaking, but he answers some simple yes/no questions appropriately. He denies any nausea or vomiting, shortness of breath or abdominal pain. OBJECTIVE: VITAL SIGNS: Temperature 98.6. Heart rate 88. Blood pressure 136/77. Respiratory rate 20. O2 saturation 97% on room air. RESPIRATORY: Essentially clear to auscultation bilaterally. CARDIAC: Regular rate and rhythm. GASTROINTESTINAL: Abdomen is soft, nondistended, nontender. Bowel sounds are positive. NEUROLOGIC: Awake, alert and oriented times three. LABORATORY: WBCs have come down to 23,700 with hemoglobin 9.8, hematocrit 30. Platelet count is down to 472. Electrolytes are basically within normal limits. Preliminary blood cultures show no growth after 24 hours. Urine culture is pending. Chest x-ray shows no acute chest disease. All other labs and films have been reviewed via the EMR. ASSESSMENT: 1. Sepsis with severe leukocytosis secondary to probable pyelonephritis on the right and developing bilateral pneumonia as noted on CT of the chest. 2. Urinary tract infection in the form of pyelonephritis with the patient having a history of multi-drug resistant Escherichia coli and recently having been on Levaquin and meropenem within the last three weeks. 3. Possible healthcare acquired pneumonia versus community acquired pneumonia with the patient recently being in the hospital for bilateral lobe pneumonia treated with Levaquin with multiple drug resistant risk factors in the form of questionable Pseudomonas and methicillin-resistant Staphylococcus aureus. 4. Severe constipation as noted on CT. 5. History of Lewy Body dementia. 6. History of Parkinson's disease. 7. Congestive heart failure with unknown etiology with no current echocardiogram available at this time for review with the patient showing no signs or symptoms of exacerbation. 8. Anemia of unknown etiology, may be dilutional as the patient received several liters of fluids. PLAN: We will continue present supportive care. He will continue on his meropenem, Levaquin and vancomycin. We will await his culture results. He has had a history of multi-drug resistant E. coli in the past. He was extremely constipated and he has several good bowel movements. I will also do an x-ray in the morning to rule out any further problems with constipation. I have ordered lab for in the morning as well as abdominal x-ray. We will continue to monitor the patient closely and follow as needed. [facility][id number] [facility]
[2019-03-18] MEDS ORDERED: NYSTATIN CREAM 15 GM TUBE TOP ONE (20:36)
[2019-03-18] MEDS ORDERED: levETIRAcetam 250 MG TAB ONE (20:36)
[2019-03-18] MEDS ORDERED: ROPINIROLE HYDROCHLORIDE PO SCH (21:00)
[2019-03-18] MEDS ORDERED: NON-FORMULARY MEDICATION 1 EA MIS (Levetiracetam [Keppra] 500 MG) PO SCH (21:00)
[2019-03-18] MEDS ORDERED: NYSTATIN 100000 UNIT EX SCH (21:00)
[2019-03-18] MEDS: ESCITALOPRAM 10 MG TAB PO SCH (21:28)
[2019-03-18] MEDS: QUEtiapine FUMARATE 25 MG TAB PO SCH (21:28)
[2019-03-18] MEDS: RIVASTIGMINE TARTRATE 6 MG PO SCH (21:35)
[2019-03-18] MEDS: ALPRAZolam 0.25 MG TAB PO SCH (21:36)
[2019-03-18] MEDS: levoFLOXacin 750MG IV 750 MG in PREMIX BAG 1 BAG IVPB SCH (23:56)
[2019-03-19] MEDS: SODIUM CHLORIDE 0.45% 1000ML 1,000 ML IVS PRN (01:56)
[2019-03-19] MEDS: PANTOPRAZOLE SODIUM IV 40 MG VIAL IV SCH (05:50)
--- NOTE | 2019-03-19 06:12 | RAD ---
ABDOMEN, SINGLE VIEW, XR. CLINICAL HISTORY: constipation COMPARISON: CT abdomen and pelvis with contrast 03/17/2019 TECHNIQUE: AP upright abdomen. FINDINGS: Scattered small and large bowel air. Normal bowel caliber and distribution. No free air. Solid visceral organ shadows appear normal Bulky degenerative bridging osteophytes within the lower thoracic and lumbar spine. Hypertrophic changes throughout the bony pelvis. Heart is upper normal in size. Clear lung bases. IMPRESSION: No acute finding within the abdomen. Electronically signed by: Leta Sheets DO 03/19/2019 6:09 AM [employer]
[2019-03-19] MEDS ORDERED: levETIRAcetam 250 MG TAB ONE (07:54)
[2019-03-19] MEDS: IPRATROPIUM/ALBUTEROL 3 ML VIAL INH SCH ×4 (08:00→20:00)
[2019-03-19] MEDS: POLYETHYLENE GLYCOL 3350 17 GM PCKT PO SCH (08:23)
[2019-03-19] MEDS: SPIRONOLACTONE 25 MG TAB PO SCH (09:09)
[2019-03-19] MEDS: levETIRAcetam 250 MG TAB PO SCH ×2 (09:10→20:49)
[2019-03-19] MEDS: RIVASTIGMINE TARTRATE 6 MG PO SCH ×2 (10:49→20:49)
[2019-03-19] MEDS: NON-FORMULARY MEDICATION 1 EA MIS (Memantine Hcl [Namenda Xr] 28 MG) PO SCH (10:49)
[2019-03-19] MEDS ORDERED: MEROPENEM 1 GM VIAL IVPB ONE ×2 (11:01→19:30)
[2019-03-19] MEDS ORDERED: SODIUM CHL 0.9% 50ML MIN-BAG+ 50 ML IVPB ONE ×2 (11:01→19:28)
[2019-03-19] MEDS: MEROPENEM 1 GM in SODIUM CHL 0.9% 50ML MIN-BAG+ 50 ML IVPB SCH ×2 (11:12→22:37)
[2019-03-19] MEDS: NYSTATIN CREAM 15 GM TUBE TOP SCH ×2 (11:23→20:49)
[2019-03-19] MEDS ORDERED: MAGNESIUM SULFATE PREMIX 2GM 2 GM in PREMIX BAG 1 BAG IVPB ONE (12:41)
[2019-03-19] MEDS: BIFIDOBACTERIUM INFANTIS 4 MG CAP PO SCH ×2 (15:00→20:49)
[2019-03-19] MEDS: VANCOMYCIN HCL INJ 1,000 MG, VANCOMYCIN HCL INJ 250 MG in SODIUM CHLORIDE 0.9% 250ML 25... IVPB SCH (16:00)
[2019-03-19] MEDS ORDERED: MAGNESIUM SULFATE PREMIX 2GM 50 ML IVPB ONE (17:01)
[2019-03-19] MEDS: QUEtiapine FUMARATE 25 MG TAB PO SCH (20:49)
[2019-03-19] MEDS: ESCITALOPRAM 10 MG TAB PO SCH (20:49)
[2019-03-19] MEDS: ALPRAZolam 0.25 MG TAB PO SCH (20:49)
[2019-03-19] MEDS: levoFLOXacin 750MG IV 750 MG in PREMIX BAG 1 BAG IVPB SCH (23:11)
[2019-03-20] MEDS: PANTOPRAZOLE SODIUM IV 40 MG VIAL IV SCH (06:32)
[2019-03-20] MEDS: SPIRONOLACTONE 25 MG TAB PO SCH (07:41)
[2019-03-20] MEDS: levETIRAcetam 250 MG TAB PO SCH ×2 (07:41→20:31)
[2019-03-20] MEDS: BIFIDOBACTERIUM INFANTIS 4 MG CAP PO SCH ×2 (07:41→20:30)
[2019-03-20] MEDS: NON-FORMULARY MEDICATION 1 EA MIS (Memantine Hcl [Namenda Xr] 28 MG) PO SCH (07:41)
[2019-03-20] MEDS: POLYETHYLENE GLYCOL 3350 17 GM PCKT PO SCH (07:41)
[2019-03-20] MEDS: RIVASTIGMINE TARTRATE 6 MG PO SCH ×2 (07:42→20:41)
[2019-03-20] MEDS: IPRATROPIUM/ALBUTEROL 3 ML VIAL INH SCH ×4 (08:35→19:50)
[2019-03-20] MEDS: NYSTATIN CREAM 15 GM TUBE TOP SCH ×2 (09:38→20:32)
[2019-03-20] MEDS ORDERED: MEROPENEM 1 GM VIAL IVPB ONE ×2 (10:21→18:56)
[2019-03-20] MEDS ORDERED: SODIUM CHL 0.9% 50ML MIN-BAG+ 50 ML IVPB ONE ×2 (10:21→18:54)
[2019-03-20] MEDS: MEROPENEM 1 GM in SODIUM CHL 0.9% 50ML MIN-BAG+ 50 ML IVPB SCH ×2 (10:32→23:24)
--- NOTE | 2019-03-20 13:32 | PN ---
SUPERVISING PHYSICIAN: Ariel Kruger MD DATE: 03/19/19 SUBJECTIVE: The patient is lying in bed. He answers some simple yes/no questions. His did not come in today because of the inclement weather. He does not have shortness of breath or chest pain. He did have another rather large bowel movement per nursing. OBJECTIVE: VITAL SIGNS: Temperature 98.2. Heart rate 73. Blood pressure 137/78. Respiratory rate 18. O2 saturation 98% on room air. RESPIRATORY: Essentially clear to auscultation bilaterally, somewhat diminished at the bases. CARDIAC: Regular rate and rhythm. GASTROINTESTINAL: Abdomen is soft, nondistended, nontender. Bowel sounds are positive. NEUROLOGIC: Awake and alert. LABORATORY: WBCs are down to 19,200 with hemoglobin 9.3 and hematocrit 28.8. He has a left shift on his differential. Platelet count 391. Electrolytes are basically within normal limits. Magnesium low at 1.5 MICROBIOLOGY: Urine culture pending. Preliminary blood cultures show no growth after 24 hours. RADIOLOGY: Abdominal x-ray shows no acute findings within the abdomen and he does have scattered small and large bowel air with normal bowel caliber and distribution. No free air. All other labs and films have been reviewed via the EMR. ASSESSMENT: 1. Sepsis with severe leukocytosis secondary to probable pyelonephritis on the right and developing bilateral pneumonia as noted on CT of the chest. 2. Urinary tract infection in the form of pyelonephritis with the patient having a history of multi-drug resistant Escherichia coli and recently having been on Levaquin and meropenem within the last three weeks. 3. Possible healthcare acquired pneumonia versus community acquired pneumonia with the patient recently being in the hospital for bilateral lobe pneumonia treated with Levaquin with multiple drug resistant risk factors in the form of questionable Pseudomonas and methicillin-resistant Staphylococcus aureus. 4. Severe constipation as noted on CT scan, it is now improved. 5. History of Lewy Body dementia. 6. History of Parkinson's disease. 7. Congestive heart failure with unknown etiology with no current echocardiogram available at this time for review with the patient showing no signs or symptoms of exacerbation. 8. Anemia of unknown etiology, may be dilutional as the patient received several liters of fluids. PLAN: We will continue present supportive care. He will continue on his meropenem, Levaquin and vancomycin. We will await his culture results. I would also like to wait for his urine culture to come back prior to discharge as he has a history of multi-drug resistant E. coli in the past. He has been started on MiraLAX daily and will need to continue that once he leaves the hospital. He should be able to be discharged in the next 1 to 2 days pending the return of his urine culture. #[id number] [facility]
[2019-03-20] MEDS ORDERED: VANCOMYCIN HCL INJ 1,000 MG, VANCOMYCIN HCL INJ 250 MG in SODIUM CHLORIDE 0.9% 250ML 25... IVPB SCH (15:00)
[2019-03-20] MEDS ORDERED: SODIUM CHLORIDE 0.9% 250ML 250 ML ONE (15:03)
[2019-03-20] MEDS ORDERED: VANCOMYCIN HCL INJ 500 MG VIAL ONE (15:03)
[2019-03-20] MEDS ORDERED: VANCOMYCIN HCL INJ 1,000 MG VIAL IVPB ONE (15:03)
[2019-03-20] MEDS: ESCITALOPRAM 10 MG TAB PO SCH (20:32)
[2019-03-20] MEDS: QUEtiapine FUMARATE 25 MG TAB PO SCH (20:33)
[2019-03-20] MEDS: ALPRAZolam 0.25 MG TAB PO SCH (20:34)
[2019-03-20] MEDS: IV SET AND CAP CHANGE INJ INJ SCH (23:24)
[2019-03-21] MEDS: PANTOPRAZOLE SODIUM IV 40 MG VIAL IV SCH (06:04)
[2019-03-21] MEDS ORDERED: SODIUM CHL 0.9% 50ML MIN-BAG+ 50 ML IVPB ONE ×2 (08:01→19:08)
[2019-03-21] MEDS ORDERED: SODIUM CHLORIDE 0.9% 250ML 250 ML ONE ×2 (08:01→19:07)
[2019-03-21] MEDS ORDERED: VANCOMYCIN HCL INJ 500 MG VIAL ONE (08:01)
[2019-03-21] MEDS ORDERED: VANCOMYCIN HCL INJ 1,000 MG VIAL IVPB ONE ×2 (08:02→19:09)
[2019-03-21] MEDS ORDERED: MEROPENEM 1 GM VIAL IVPB ONE ×2 (08:02→19:10)
[2019-03-21] MEDS: IPRATROPIUM/ALBUTEROL 3 ML VIAL INH SCH ×4 (08:10→20:00)
--- NOTE | 2019-03-21 08:26 | PN ---
SUPERVISING PHYSICIAN: Ariel Kruger MD DATE: 03/20/19 SUBJECTIVE: The patient is lying in bed. The patient does answer simple yes/no questions appropriately. His has been unable to come in due to the inclement weather. He denies any nausea or vomiting, shortness of breath or chest pain. OBJECTIVE: VITAL SIGNS: Temperature 98.7. Heart rate 63. Blood pressure 138/65. Respiratory rate 20. O2 saturation 93% on room air. RESPIRATORY: Essentially clear to auscultation bilaterally. CARDIAC: Regular rate and rhythm. GASTROINTESTINAL: Abdomen is soft, nondistended, nontender. Bowel sounds are positive. NEUROLOGIC: He is awake, alert, and oriented x3. . LABORATORY: WBCs have [id number] to 14,300 with hemoglobin 8.8 and hematocrit 27.2. He does have a left shift on his differential. Electrolytes are basically within normal limits. MICROBIOLOGY: Preliminary blood cultures show no growth after 3 days. His urine culture is still pending. All other labs and films have been reviewed via the EMR. ASSESSMENT: 1. Sepsis with severe leukocytosis secondary to probable pyelonephritis on the right and developing bilateral pneumonia as noted on CT of the chest. 2. Urinary tract infection in the form of pyelonephritis with the patient having a history of multi-drug resistant Escherichia coli and recently having been on Levaquin and meropenem within the last three weeks. 3. Possible healthcare acquired pneumonia versus community acquired pneumonia with the patient recently being in the hospital for bilateral lobe pneumonia treated with Levaquin with multiple drug resistant risk factors in the form of questionable Pseudomonas and methicillin-resistant Staphylococcus aureus. 4. Severe constipation as noted on CT scan, it is now improved. 5. History of Lewy Body dementia. 6. History of Parkinson's disease. 7. Congestive heart failure with unknown etiology with no current echocardiogram available at this time for review with the patient showing no signs or symptoms of exacerbation. 8. Anemia of unknown etiology, may be dilutional as the patient received several liters of fluids. PLAN: We will continue present supportive care. He will continue on meropenem, Levaquin and vancomycin. We will continue to monitor his culture results. I would like for his urine culture to be back prior to discharge as he has a history of multi-drug resistant E. coli in the past. [facility] but I have not heard from them as yet but hopefully he can be discharged the one or two days [facility] as well as his pending urine culture. I have ordered lab for in the morning. We will continue to monitor him closely and follow as needed. #[id number] [facility]
[2019-03-21] MEDS: BIFIDOBACTERIUM INFANTIS 4 MG CAP PO SCH ×2 (08:51→20:35)
[2019-03-21] MEDS: levETIRAcetam 250 MG TAB PO SCH ×2 (08:51→20:35)
[2019-03-21] MEDS: QUEtiapine FUMARATE 25 MG TAB PO PRN (08:51)
[2019-03-21] MEDS: SPIRONOLACTONE 25 MG TAB PO SCH (08:51)
[2019-03-21] MEDS: NYSTATIN CREAM 15 GM TUBE TOP SCH ×2 (08:52→20:36)
[2019-03-21] MEDS: RIVASTIGMINE TARTRATE 6 MG PO SCH ×2 (08:52→20:50)
[2019-03-21] MEDS: NON-FORMULARY MEDICATION 1 EA MIS (Memantine Hcl [Namenda Xr] 28 MG) PO SCH (08:52)
[2019-03-21] MEDS: POLYETHYLENE GLYCOL 3350 17 GM PCKT PO SCH (08:52)
[2019-03-21] MEDS: VANCOMYCIN HCL INJ 1,000 MG in SODIUM CHLORIDE 0.9% 250ML 250 ML IVPB SCH ×2 (09:07→20:38)
[2019-03-21] MEDS: MEROPENEM 1 GM in SODIUM CHL 0.9% 50ML MIN-BAG+ 50 ML IVPB SCH ×2 (11:21→23:00)
--- NOTE | 2019-03-21 13:27 | PN ---
SUPERVISING PHYSICIAN: Ariel Kruger MD DATE: 03/21/19 SUBJECTIVE: The patient is doing well. He has had multiple bowel movements. He has had no complaints of abdominal pains, nausea or vomiting. He remains afebrile. OBJECTIVE: VITAL SIGNS: Temperature 98.1. Pulse 66. Blood pressure 135/79. Respirations 16. Saturation 96% on room air. I&Os show negative balance of 2157 with weight 61.96 kg, which is down from admission of 64.9. GENERAL: The patient is resting, appears to be in no acute distress. He is alert and interactive with assessment. CHEST: Lungs are clear to auscultation, just slightly diminished towards the bases. HEART: Regular rate and rhythm. ABDOMEN: Soft, nontender. Positive bowel sounds. NEUROLOGIC: Alert and oriented times three. LABORATORY: White count now 12,700. Hemoglobin stable at 9.6 and hematocrit 29.6, platelet count 356,000. Differential does show a left shift. Chemistries show normal electrolytes with BUN 11, creatinine 0.96. Liver functions within normal limits. Blood sugar 92. MICROBIOLOGY: Urine culture still pending. Blood cultures remain negative after 3 days. RADIOLOGY: No additional radiographic studies. ASSESSMENT: 1. Sepsis with severe leukocytosis secondary to probable pyelonephritis on the right and developing bilateral pneumonia as noted on CT of the chest. 2. Urinary tract infection in the form of pyelonephritis with the patient having a history of multi-drug resistant Escherichia coli and recently having been on Levaquin and meropenem within the last three weeks. 3. Possible healthcare acquired pneumonia versus community acquired pneumonia with the patient recently being in the hospital for bilateral lobe pneumonia treated with Levaquin with multiple drug resistant risk factors in the form of questionable Pseudomonas and methicillin-resistant Staphylococcus aureus. 4. Severe constipation as noted on CT scan, it is now improved. 5. History of Lewy Body dementia. 6. History of Parkinson's disease. 7. Congestive heart failure with unknown etiology with no current echocardiogram available at this time for review with the patient showing no signs or symptoms of exacerbation. 8. Anemia of unknown etiology, may be dilutional as the patient received several liters of fluids. PLAN: We will continue with antibiotic coverage until we get culture results back. At this point, he is on meropenem, Levaquin and vancomycin. He has had several bowel movements. He is on stool softeners as well as MiraLAX and doing well. Once we have his cultures back, he has been okayed to go back to [facility] once medically cleared, which hopefully will occur tomorrow. At that time, we will transition to oral antibiotics as appropriate to the urine culture results. Until then, we will continue to monitor and treat as needed. #[id number] [facility]D
[2019-03-21] MEDS: ESCITALOPRAM 10 MG TAB PO SCH (20:36)
[2019-03-21] MEDS: ALPRAZolam 0.25 MG TAB PO SCH (20:37)
[2019-03-21] MEDS: QUEtiapine FUMARATE 25 MG TAB PO SCH (20:37)
[2019-03-21] MEDS: levoFLOXacin 750MG IV 750 MG in PREMIX BAG 1 BAG IVPB SCH ×2 (23:41)
[2019-03-22] MEDS: PANTOPRAZOLE SODIUM IV 40 MG VIAL IV SCH (06:02)
[2019-03-22] MEDS ORDERED: SODIUM CHLORIDE 0.9% 250ML 250 ML ONE (07:12)
[2019-03-22] MEDS ORDERED: SODIUM CHL 0.9% 50ML MIN-BAG+ 50 ML IVPB ONE (07:12)
[2019-03-22] MEDS ORDERED: VANCOMYCIN HCL INJ 1,000 MG VIAL IVPB ONE (07:13)
[2019-03-22] MEDS ORDERED: MEROPENEM 1 GM VIAL IVPB ONE (07:13)
[2019-03-22] MEDS: SPIRONOLACTONE 25 MG TAB PO SCH (07:56)
[2019-03-22] MEDS: BIFIDOBACTERIUM INFANTIS 4 MG CAP PO SCH (07:56)
[2019-03-22] MEDS: QUEtiapine FUMARATE 25 MG TAB PO PRN (07:56)
[2019-03-22] MEDS: RIVASTIGMINE TARTRATE 6 MG PO SCH (07:57)
[2019-03-22] MEDS: levETIRAcetam 250 MG TAB PO SCH (07:57)
[2019-03-22] MEDS: NON-FORMULARY MEDICATION 1 EA MIS (Memantine Hcl [Namenda Xr] 28 MG) PO SCH (07:57)
[2019-03-22] MEDS: NYSTATIN CREAM 15 GM TUBE TOP SCH (07:57)
[2019-03-22] MEDS: POLYETHYLENE GLYCOL 3350 17 GM PCKT PO SCH (07:57)
[2019-03-22 08:03] VITALS: TEMP 97.6
[2019-03-22] MEDS: IPRATROPIUM/ALBUTEROL 3 ML VIAL INH SCH ×2 (08:15→13:28)
[2019-03-22] MEDS: VANCOMYCIN HCL INJ 1,000 MG in SODIUM CHLORIDE 0.9% 250ML 250 ML IVPB SCH (09:30)
[2019-03-22] MEDS: MEROPENEM 1 GM in SODIUM CHL 0.9% 50ML MIN-BAG+ 50 ML IVPB SCH (11:27)
[2019-03-22 13:10] VITALS: BP 124/76; O2SAT 96
--- NOTE | 2019-03-27 12:06 | DS ---
SUPERVISING PHYSICIAN: Ariel Kruger MD ADMISSION DIAGNOSIS: 1. Sepsis with severe leukocytosis secondary to probable pyelonephritis on the right and developing bilateral pneumonia as noted on CT of the chest. 2. Urinary tract infection in the form of pyelonephritis with the patient having a history of multi-drug resistant Escherichia coli and recently having been on Levaquin and meropenem within the last three weeks. 3. Possible healthcare acquired pneumonia versus community acquired pneumonia with the patient recently being in the hospital for bilateral lobe pneumonia treated with Levaquin with multiple drug resistant risk factors in the form of questionable Pseudomonas and methicillin-resistant Staphylococcus aureus. 4. Severe constipation as noted on CT. 5. History of Lewy Body dementia. 6. History of Parkinson's disease. 7. Congestive heart failure with unknown etiology with no current echocardiogram available at this time for review with the patient showing no signs or symptoms of exacerbation. DISCHARGE DIAGNOSIS: 1. Sepsis secondary to urinary tract infection with no signs of pyelonephritis with bilateral pneumonia, treated with meropenem for a full course as well as Levaquin, showing good clinical response to treatment. 2. Urinary tract infection secondary to Escherichia coli with no signs of pyelonephritis with final culture results show enterococcus species group B, sensitive to vancomycin and amoxicillin with the patient discharged on amoxicillin. 3. Healthcare acquired pneumonia with the patient recently treated for bilateral pneumonia with Levaquin and showing good response on meropenem and Levaquin prior to discharge. 4. Chronic constipation as noted on CT scan, improved. 5. History of Lewy Body dementia. 6. History of Parkinson's disease. 7. Congestive heart failure with unknown etiology with no current echocardiogram available at this time for review with the patient showing no signs or symptoms of exacerbation. REASON FOR HOSPITALIZATION: Mr. Carranza is an 83-year-old male patient with a past medical history of Lewy Body dementia with Parkinson's complicated by congestive heart failure. He was brought in by family from [facility] to the clinic with collected lab work. His initial lab was noted to be with 40,000 white count, so the patient was admitted for further evaluation. He was just discharged from the hospital on 03/03/19 due to sepsis and multiple drug resistant E. coli urinary tract infection with pneumonia. Review of that record shows his white count initially was 23,000. He was treated with meropenem and Levaquin and transitioned to Rocephin and discharged on Macrobid and doxycycline for treatment of urinary tract infection and pneumonia. His endorses that she saw him four days previously and he was himself at that time, but prior to admission to the Emergency Room today, he was much less alert and responsive than his usual self. She noted he began running a low grade fever at the half-way of 99. History is significantly limited due to dementia and acute mental status change. He is not able to answer any questions, therefore, the majority of the history and physical is obtained from previous records and his who is also a poor historian. There was no mention of any other complaints of chest pain, dyspnea, abdominal pain or other urinary symptoms. Vital signs in the Emergency Room showed that he was stable hemodynamically with temperature 98.6, pulse 92, blood pressure 121/83, respirations 16, saturation 96% on room air. Imaging studies were completed including abdominopelvic CT with contrast and per radiologic interpretation was noted some mild hydroureteronephrosis with consideration of possible recent urinary stone or developing pyelonephritis. CT of the chest without contrast per radiologic interpretation showed an 8 mm spiculated nodule in the left lower lobe with a subtle ground glass nodule and opacity scattered in both lower lung gibson, left greater than right. Given his past medical history and concerns for the white count which on initial workup was 32,600 with a left shift and bands, urinalysis was completed from [facility] and showed just 100 of glucose, small amount of leukocyte esterase. Microscopic revealed 0 to 1 RBCs, 10 to 20 WBCs, rare bacteria and trace amount of mucous membranes. Urine cultures were submitted. Influenza A by PCR was also completed which was negative. Blood cultures were drawn and he started on antibiotics initially to include meropenem. Due to leukocytosis with possible developing pyelonephritis, he is going to be admitted for further treatment and evaluation. He does have high risk factors for multi-drug resistant organisms as demonstrated in the past. Therefore, we will also need additional parenteral antibiotics and close monitoring. LABORATORY: White count initially 32,600 with 1% bands. Prior to discharge, white count was normalizing at 12,700. Hemoglobin and hematocrit stable at 9.6 and 29.6 respectively. Platelet count 256,000. Differential showed resolving left shift. Chemistries on discharge showed normal electrolytes with BUN 11, creatinine 0.96. Magnesium 1.9. Liver functions within normal limits. Urinalysis on admission showed small amount of leukocyte esterase with microscopic revealing 10 to 20 WBCs, 0 to 1 RBCs, rare bacteria. MICROBIOLOGY: Blood cultures remained negative after 5 days. Final culture results on urine did show enterococcus group B sensitive to ampicillin and vancomycin, resistant to Levaquin. Influenza A and B by PCR were both negative. RADIOLOGY: Initial chest x-ray on admission showed no acute abnormalities identified. He had a repeat chest x-ray during hospitalization which showed no acute disease of the chest per radiologic interpretation. He also had abdominopelvic CT prior to admission with IV contrast and per radiologic interpretation showed urinary bladder to be collapsed by catheter. Mild right hydroureteronephrosis, possibly related to recent stone or pyelonephritis. Please see that report for additional findings. He had an abdominal x-ray after he received multiple enemas and had resolution of his constipation and showed no acute findings within the abdomen. EKG showed normal sinus rhythm with no ST or T wave changes to indicate ischemia or acute injury pattern. HOSPITAL COURSE: Mr. Carranza was admitted on 03/17/19 for urinary tract infection with bilateral pneumonia and sepsis with severe constipation. He was started on meropenem, Levaquin and vancomycin given his past medical history and recent hospitalization. He did show good clinical response to treatment. He was given a soapsuds enema and stool softeners with good results on relieving constipation. He was hemodynamically stable with all labs returning to baseline levels and the patient was at baseline mental status and showing to be clinically stable enough to continue with outpatient management. PHYSICAL EXAMINATION ON DISCHARGE: VITAL SIGNS: Temperature 97.6. Pulse 81. Blood pressure 124/76. Respirations 18. Saturation 96% on room air. GENERAL: The patient was resting comfortably and appeared to be at his baseline mental status. He was alert. CHEST: Lungs clear towards the bases, just diminished. HEART: Regular rate and rhythm. ABDOMEN: Soft, nontender, positive bowel sounds. EXTREMITIES: No edema. NEUROLOGIC: Alert and oriented times 3. PLAN: Mr. Carranza was discharged on 03/22/19 back to [facility]. Instructions provided to followup on discharge as directed with Dr. Farooq in 7 days or sooner. He was to resume his medications as instructed and told to return to the Emergency Room if he had any concerning symptoms. Diet on discharge was regular as tolerated. Activity as per physical therapy. Medications prescribed on discharge included: 1. Amoxicillin 875 mg twice daily, #10, no refills. 2. Align 4 mg twice daily, no refills. 3. Dulcolax 5 mg daily as needed, #30. 4. Milk of Magnesia 30 mL as needed daily for constipation. 5. MiraLAX 17 grams daily, #20, no refills. DISPOSITION: The patient was discharged back to [facility]. CONDITION ON DISCHARGE: Stable and improved. [id number] [facility]
== END 2019-03-22 13:45 | DRG 871 ==
LOC: ER 16:54 → MS 21:37 → OBSVTOIN 21:37
PROVIDERS: ADMIT Nurse Practitioner Family; ATTEND Nurse Practitioner Family
PROC: BW211ZZ Computerized Tomography (CT Scan) of Abdomen and Pelvis using Low Osmolar Contrast (ICD-10-PCS; principal; 2019-03-17)
PROC: BW241ZZ Computerized Tomography (CT Scan) of Chest and Abdomen using Low Osmolar Contrast (ICD-10-PCS; 2019-03-17)
DX: A41.9 Sepsis, unspecified organism (principal); J18.9 Pneumonia, unspecified organism; N39.0 Urinary tract infection, site not specified; I50.30 Unspecified diastolic (congestive) heart failure; Z16.23 Resistance to quinolones and fluoroquinolones; B96.20 Unspecified Escherichia coli [E. coli] as the cause of diseases classified elsewhere; K59.09 Other constipation; I50.9 Heart failure, unspecified; G31.83 Neurocognitive disorder with Lewy bodies; F02.80 Dementia in other diseases classified elsewhere, unspecified severity, without behavioral disturbance, psychotic disturbance, mood disturbance, and anxiety; G20 Parkinson's disease; B95.2 Enterococcus as the cause of diseases classified elsewhere; K59.00 Constipation, unspecified; D64.9 Anemia, unspecified; Y95 Nosocomial condition; Z66 Do not resuscitate; Z79.899 Other long term (current) drug therapy

== ENCOUNTER → 2019-03-17 | Outpatient (CLI) | payer MEDICARE | LOC: GMAF 17:02 | PROVIDERS: ATTEND Nurse Practitioner Family | DX: R50.9 Fever, unspecified (principal) ==